=== PATIENT | male | born 1970 | race Caucasian/White ===

== ENCOUNTER 2021-03-22 15:37 | Outpatient (CLI) | payer OTHER, SELFPAY ==
[2021-03-22 15:58] LABS: Hematocrit 33.4 % (42.0-52.0); Hemoglobin 11.4 g/dL (14.0-18.0); Mean Corpuscular HGB Conc 34.1 g/dl (32-36); Mean Corpuscular Hemoglobin 30.2 pg (26-34); Mean Corpuscular Volume 88.6 fl (80-100); Mean Platelet Volume 8.5 fl (7.4-10.4); Platelet Count Result 326 k/mm3 (150-375); Red Blood Count 3.77 M/mm3 (4.6-6.20); Red Cell Distribution Width 12.8 % (11.5-14.5); White Blood Count 8.3 K/mm3 (4.5-10.0)
[2021-03-22 18:39] LABS: Iron 113 ug/dL (49-181)
[2021-03-22 18:41] LABS: Alanine Aminotransferase 22 U/L (4-50); Alkaline Phosphatase 53 U/L (38-126); Anion Gap 11 mmol/L (8-16); Aspartate Amino Transferase 46 U/L (17-59); Bilirubin,Total 0.4 mg/dL (0.2-1.3); Blood Urea Nitrogen 13 mg/dL (9-20); Calcium 9.8 mg/dL (8.4-10.2); Carbon Dioxide 29 mmol/L (22-30); Chloride 98 mmol/L (98-107); Estimated Glomerular Filt Rate > 60; Glucose 64 mg/dL (65-110); Lactate Dehydrogenase 366 U/L (313-618); Potassium 4.3 mmol/L (3.4-5.0); Sodium 138 mmol/L (137-145)
[2021-03-22 18:51] LABS: Percent Iron Saturation 33 % (20-50)
[2021-03-22 19:48] LABS: Folic Acid 7.4 ng/mL (2.76->20)
[2021-03-25 05:42] LABS: Albumin 4.8 g/dL (3.8-4.8); Alpha 1 Globulin 0.3 g/dL (0.2-0.3); Alpha 2 Globulin 0.6 g/dL (0.5-0.9); Beta 1 Globulin 0.5 g/dL (0.4-0.6); Gamma Globulin 0.7 g/dL (0.8-1.7); Interpretation Consistent with; Protein, Total 7.2 g/dL (6.1-8.1)
== END 2021-03-22 15:38 | disposition home or self-care (01) ==
PROVIDERS: Visit Provider Internal Medicine Hematology & Oncology
DX: D64.9 Anemia, unspecified (principal)
CPT/HCPCS: 36415; 80053; 82607; 82728; 82746; 83540; 83550; 83615; 84155; 84165; 85027

== ENCOUNTER 2021-07-26 08:43 | Outpatient (CLI) | payer OTHER, SELFPAY ==
[2021-07-26 08:58] LABS: Basophils Percent Auto 0.7 % (0.2-1.2); Eosinophils Absolute Auto 0.4 K/mm3 (0-0.3); Eosinophils Percent Auto 6.8 % (0-4.4); Hematocrit 35.3 % (42.0-52.0); Hemoglobin 11.4 g/dL (14.0-18.0); Immature Granulocyte Absolute 0.02 K/mm3 (0.00-0.031); Immature Granulocyte Percent A 0.4 % (0-0.5); Lymphocytes Percent Auto 29.4 % (18.3-44.2); Mean Corpuscular HGB Conc 32.3 g/dl (32-36); Mean Corpuscular Hemoglobin 30.8 pg (26-34); Mean Corpuscular Volume 95.4 fl (80-100); Mean Platelet Volume 8.3 fl (7.4-10.4); Monocytes Absolute Auto 0.5 K/mm3 (0.1-0.6); Monocytes Percent Auto 9.6 % (2.6-8.5); Neutrophils Absolute Auto 2.9 K/mm3 (1.3-6.7); Neutrophils Percent Auto 53.1 % (45.5-73.1); Platelet Count Result 309 k/mm3 (150-375); Red Cell Distribution Width 12.7 % (11.5-14.5); White Blood Count 5.4 K/mm3 (4.5-10.0)
[2021-07-26 13:18] LABS: Anion Gap 10 mmol/L (8-16); Blood Urea Nitrogen 14 mg/dL (9-20); Calcium 9.9 mg/dL (8.4-10.2); Carbon Dioxide 28 mmol/L (22-30); Chloride 101 mmol/L (98-107); Estimated Glomerular Filt Rate > 60; Glucose 102 mg/dL (65-110); Potassium 4.4 mmol/L (3.4-5.0); Sodium 139 mmol/L (137-145)
[2021-07-26 14:16] LABS: Vitamin B12 > 1000.0 pg/mL (239-931)
[2021-07-26 14:28] LABS: Folic Acid 6.1 ng/mL (2.76->20)
== END 2021-07-26 08:44 | disposition home or self-care (01) ==
LOC: ANHLAB 08:45
PROVIDERS: Visit Provider Internal Medicine Hematology & Oncology
DX: D64.9 Anemia, unspecified (principal)
CPT/HCPCS: 36415; 80048; 82607; 82746; 85025

== ENCOUNTER 2021-11-17 14:42 | Outpatient (RCR) | payer OTHER, SELFPAY ==
[2021-11-17 15:02] LABS: Basophils Percent Auto 0.4 % (0.2-1.2); Eosinophils Absolute Auto 0.3 K/mm3 (0-0.3); Eosinophils Percent Auto 3.5 % (0-4.4); Hematocrit 31.4 % (42.0-52.0); Hemoglobin 10.3 g/dL (14.0-18.0); Immature Granulocyte Absolute 0.01 K/mm3 (0.00-0.031); Immature Granulocyte Percent A 0.1 % (0-0.5); Lymphocytes Absolute Auto 2.44 K/mm3 (0.9-3.2); Lymphocytes Percent Auto 33.2 % (18.3-44.2); Mean Corpuscular HGB Conc 32.8 g/dl (32-36); Mean Corpuscular Hemoglobin 30.7 pg (26-34); Mean Corpuscular Volume 93.7 fl (80-100); Mean Platelet Volume 8.4 fl (7.4-10.4); Monocytes Absolute Auto 0.6 K/mm3 (0.1-0.6); Monocytes Percent Auto 7.6 % (2.6-8.5); Neutrophils Percent Auto 55.2 % (45.5-73.1); Platelet Count Result 334 k/mm3 (150-375); Red Blood Count 3.35 M/mm3 (4.6-6.20); Red Cell Distribution Width 13.1 % (11.5-14.5); White Blood Count 7.3 K/mm3 (4.5-10.0)
[2021-11-17 16:07] LABS: Iron 107 ug/dL (49-181)
[2021-11-17 16:10] LABS: Anion Gap 12 mmol/L (8-16); Blood Urea Nitrogen 12 mg/dL (9-20); Calcium 9.1 mg/dL (8.4-10.2); Carbon Dioxide 23 mmol/L (22-30); Chloride 99 mmol/L (98-107); Estimated Glomerular Filt Rate > 60; Glucose 89 mg/dL (65-110); Potassium 3.5 mmol/L (3.4-5.0); Sodium 134 mmol/L (137-145)
[2021-11-17 16:18] LABS: Percent Iron Saturation 30 % (20-50)
[2021-11-17 17:15] LABS: Folic Acid 6.6 ng/mL (2.76->20)
== END 2022-02-15 23:59 | disposition home or self-care (01) ==
LOC: ANHLAB 14:42
PROVIDERS: Visit Provider Internal Medicine Hematology & Oncology
DX: D64.9 Anemia, unspecified (principal)
CPT/HCPCS: 36415; 80048; 82607; 82728; 82746; 83540; 83550; 85025

== ENCOUNTER 2022-01-28 06:35 | Outpatient (CLI) | payer OTHER, SELFPAY ==
--- NOTE | 2022-01-28 09:47 | NEURO_ITS ---
This report was recreated on January 28, 2022. Original report was signed by Dr. Erick Sorensen on January 28, 2022 at 0947. Neurology EEG Report General Information Date of Study: 01/28/22 TEST eeg DIAGNOSIS None specified convulsions CONDITION OF RECORDING awake drowsy and sleep EEG NUMBER [id number] CLINICAL HISTORY patient is a is he had seizures for a while years ago but has not had 1 in several years. Wants to cut back on seizure medication EEG DESCRIPTION background rhythm consists of low voltage 5 to 7 hertz per 2nd theta admixed with low to medium voltage 8 to 9 hertz per 2nd alpha posterior. Bilateral symmetrical sleep activity seen during sleep. Hyperventilation not done. Photic stimulation produces normal drive. Non paroxysmal nonfocal nonlateralizing IMPRESSION only questionably abnormal record due to the presence of bihemispheric excessive amount of theta activity even though there is no evidence of any paroxysmal activity clinical correlation recommended these abnormalities could be suggestive of underlying organic or metabolic encephalopathy. This dictation may have been done utilizing a voice recognition system. Attempts have been made to correct errors. However, there may be uncorrected grammatical, spelling, and recognition errors present. Report Initialized date/time: Erick Sorensen MD 01/28/22 / 0947 Electronically signed by: Erick Sorensen MD 01/28/22 0940 [facility]
== END 2022-01-28 06:36 | disposition home or self-care (01) ==
LOC: ANHNEURO 06:35
PROVIDERS: PCP Internal Medicine Infectious Disease; Visit Provider Psychiatry & Neurology Neurology
DX: R56.9 Unspecified convulsions (principal); R94.01 Abnormal electroencephalogram [EEG]
CPT/HCPCS: 95816

== ENCOUNTER 2022-01-28 14:45 | Outpatient (CLI) | payer OTHER, SELFPAY ==
--- NOTE | ~2022-01-28 | CT_ITS ---
EXAMINATION: CT brain wo/w con DATE: 01/28/2022 15:13 INDICATION: Seizure TECHNIQUE: Computed tomography (CT) of the head was performed without and subsequently with 100 cc Om nipaque 300 intravenous contrast. The mA was adjusted according to patient size. Iterative reconstruc tion technique was employed. Exam dose: 1362.00 mGy-cm total exam DLP. COMPARISON: None FINDINGS: There is a focal subacute or chronic lacunar infarct in the right frontal periventricular a efra. No intracranial mass lesion or hemorrhage or cerebrovascular accident is noted otherwise. No midline shift or mass effect. There is nonspecific diminished attenuation of the cerebral white matter, likely due to chronic small vessel ischemic changes. There is considerably greater than expected cerebral and cerebellar volume loss for patient age. No subdural or epidural hematoma. There is prominent patchy opacification of the ethmoid air cells bilaterally. There is prominent soft tissue thickening at the very upper aspect of the maxillary sinuses, which are otherwise excluded fr om this examination. There is minimal mucoperiosteal thickening of the left sphenoid sinus. There is minimal mucoperiosteal thickening of the frontal sinuses. The mastoid air cells are normally developed and aerated. No fracture or bone destruction of the cranial vault. IMPRESSION: Focal subacute or chronic lacunar infarct in the right frontal periventricular area Cerebral atherosclerosis and chronic small vessel ischemic changes of the cerebral white matter Greater than expected cerebral and cerebellar atrophy for patient age Paranasal sinus disease involving particularly ethmoid and maxillary sinuses Reviewed, dictated and finalized at Location A. Reviewed, dictated and finalized at location B. IMPRESSION: Focal subacute or chronic lacunar infarct in the right frontal per iventricular area Cerebral atherosclerosis and chronic small vessel ischemic changes of the cereb ral white matter Greater than expected cerebral and cerebellar atrophy for patient age Paranasal sinus disease involving particularly ethmoid and maxillary sinuses
--- NOTE | 2022-01-28 09:44 | P.NEURO_ITS ---
Neurology EEG Report General Information Date of Study: 01/28/22 TEST eeg DIAGNOSIS None specified convulsions CONDITION OF RECORDING awake drowsy and sleep EEG NUMBER [id number] CLINICAL HISTORY patient is a is he had seizures for a while years ago but has not had 1 in several years. Wants to cut back on seizure medication EEG DESCRIPTION background rhythm consists of low voltage 5 to 7 hertz per 2nd theta admixed with low to medium voltage 8 to 9 hertz per 2nd alpha posterior. Bilateral symmetrical sleep activity seen during sleep. Hyperventilation not done. Photic stimulation produces normal drive. Non paroxysmal nonfocal nonlate ralizing IMPRESSION only questionably abnormal record due to the presence of bihemispheric excessive amount of theta activity even though there is no evidence of any paroxysmal activity clinical correlation recommended these abnormalities could be suggestive of underlying organic or metabolic encephalopathy.
--- NOTE | 2022-01-28 09:47 | WPDNEUROLOGY ---
Neurology EEG Report General Information Date of Study: 01/27/22 TEST eeg DIAGNOSIS Altered mental status with history of alcohol withdrawal CONDITION OF RECORDING awake and drowsy EEG NUMBER [id number] CLINICAL HISTORY tracings short due to pulling of of the electrodes patient was reportedly confused and lethargic EEG DESCRIPTION fold record consists of low-voltage beta activity admixed with multiple muscle artifacts and movement artifacts non paroxysmal focal. nonfocal. nonlateralizing. IMPRESSION no judgment can't be made because of the multiple movement artifacts and pulling of the electrodes clinical correlation recommended there is no evidence of any elton electrical discharge
== END 2022-01-28 14:46 | disposition home or self-care (01) ==
PROVIDERS: PCP Internal Medicine Infectious Disease; Visit Provider Psychiatry & Neurology Neurology
DX: R56.9 Unspecified convulsions (principal); I63.81 Other cerebral infarction due to occlusion or stenosis of small artery; I67.2 Cerebral atherosclerosis; G31.89 Other specified degenerative diseases of nervous system; J32.8 Other chronic sinusitis
CPT/HCPCS: 70470; 95816; Q9967

== ENCOUNTER 2022-03-21 15:50 | Outpatient (CLI) | payer OTHER, SELFPAY ==
[2022-03-21 16:03] LABS: Basophils Percent Auto 0.4 % (0.2-1.2); Eosinophils Absolute Auto 0.3 K/mm3 (0-0.3); Eosinophils Percent Auto 4.2 % (0-4.4); Hemoglobin 10.3 g/dL (14.0-18.0); Immature Granulocyte Absolute 0.03 K/mm3 (0.00-0.031); Immature Granulocyte Percent A 0.4 % (0-0.5); Lymphocytes Absolute Auto 2.25 K/mm3 (0.9-3.2); Lymphocytes Percent Auto 30.4 % (18.3-44.2); Mean Corpuscular HGB Conc 34.3 g/dl (32-36); Mean Corpuscular Hemoglobin 30.4 pg (26-34); Mean Corpuscular Volume 88.5 fl (80-100); Mean Platelet Volume 8.7 fl (7.4-10.4); Monocytes Absolute Auto 0.6 K/mm3 (0.1-0.6); Monocytes Percent Auto 7.8 % (2.6-8.5); Neutrophils Absolute Auto 4.2 K/mm3 (1.3-6.7); Neutrophils Percent Auto 56.8 % (45.5-73.1); Platelet Count Result 312 k/mm3 (150-375); Red Blood Count 3.39 M/mm3 (4.6-6.20); Red Cell Distribution Width 12.9 % (11.5-14.5); White Blood Count 7.4 K/mm3 (4.5-10.0)
[2022-03-21 16:49] LABS: Alanine Aminotransferase 20 U/L (6-50); Albumin Level 4.7 g/dL (3.5-5.1); Alkaline Phosphatase 55 U/L (38-126); Anion Gap 11 mmol/L (8-16); Aspartate Amino Transferase 30 U/L (17-59); Bilirubin,Total 0.3 mg/dL (0.2-1.3); Blood Urea Nitrogen 9 mg/dL (9-20); Calcium 9.3 mg/dL (8.4-10.2); Carbon Dioxide 25 mmol/L (22-30); Chloride 96 mmol/L (98-107); Estimated Glomerular Filt Rate > 60; Glucose 83 mg/dL (65-110); Iron 101 ug/dL (49-181); Potassium 3.4 mmol/L (3.4-5.0); Sodium 132 mmol/L (137-145)
[2022-03-21 16:58] LABS: Percent Iron Saturation 33 % (20-50)
[2022-03-21 17:56] LABS: Folic Acid 5.3 ng/mL (2.76->20); Vitamin B12 > 1000.0 pg/mL (239-931)
== END 2022-03-21 15:51 | disposition home or self-care (01) ==
LOC: ANHLAB 15:51
PROVIDERS: PCP Internal Medicine Infectious Disease; Visit Provider Internal Medicine Hematology & Oncology
DX: D64.9 Anemia, unspecified (principal)
CPT/HCPCS: 36415; 80053; 82607; 82728; 82746; 83540; 83550; 85025

== ENCOUNTER 2022-09-01 08:33 | Outpatient (CLI) | payer OTHER, SELFPAY ==
[2022-09-01 08:59] LABS: Basophils Percent Auto 0.6 % (0.2-1.2); Eosinophils Absolute Auto 0.3 K/mm3 (0-0.3); Hematocrit 31.2 % (42.0-52.0); Hemoglobin 10.5 g/dL (14.0-18.0); Immature Granulocyte Absolute 0.02 K/mm3 (0.00-0.031); Immature Granulocyte Percent A 0.3 % (0-0.5); Lymphocytes Absolute Auto 1.95 K/mm3 (0.9-3.2); Lymphocytes Percent Auto 30.3 % (18.3-44.2); Mean Corpuscular HGB Conc 33.7 g/dl (32-36); Mean Corpuscular Hemoglobin 30.8 pg (26-34); Mean Corpuscular Volume 91.5 fl (80-100); Mean Platelet Volume 8.5 fl (7.4-10.4); Monocytes Absolute Auto 0.6 K/mm3 (0.1-0.6); Monocytes Percent Auto 9.6 % (2.6-8.5); Neutrophils Absolute Auto 3.6 K/mm3 (1.3-6.7); Neutrophils Percent Auto 55.2 % (45.5-73.1); Platelet Count Result 325 k/mm3 (150-375); Red Blood Count 3.41 M/mm3 (4.6-6.20); Red Cell Distribution Width 13.1 % (11.5-14.5); White Blood Count 6.4 K/mm3 (4.5-10.0)
[2022-09-02 07:49] LABS: Iron 92 ug/dL (49-181)
[2022-09-02 07:58] LABS: Percent Iron Saturation 27 % (20-50)
== END 2022-09-01 08:34 | disposition home or self-care (01) ==
LOC: ANHLAB 08:35
PROVIDERS: PCP Internal Medicine Infectious Disease; Visit Provider Internal Medicine Hematology & Oncology
DX: D64.9 Anemia, unspecified (principal)
CPT/HCPCS: 36415; 82607; 82728; 82746; 83540; 83550; 85025

== ENCOUNTER 2023-02-06 10:58 | Outpatient (CLI) | payer OTHER, SELFPAY ==
[2023-02-06 11:09] LABS: Basophils Percent Auto 0.4 % (0.2-1.2); Eosinophils Absolute Auto 0.3 K/mm3 (0-0.3); Eosinophils Percent Auto 3.4 % (0-4.4); Hematocrit 30.2 % (42.0-52.0); Hemoglobin 10.3 g/dL (14.0-18.0); Immature Granulocyte Absolute 0.03 K/mm3 (0.00-0.031); Immature Granulocyte Percent A 0.3 % (0-0.5); Lymphocytes Absolute Auto 2.13 K/mm3 (0.9-3.2); Lymphocytes Percent Auto 23.5 % (18.3-44.2); Mean Corpuscular HGB Conc 34.1 g/dl (32-36); Mean Corpuscular Hemoglobin 31.4 pg (26-34); Mean Corpuscular Volume 92.1 fl (80-100); Monocytes Absolute Auto 0.6 K/mm3 (0.1-0.6); Monocytes Percent Auto 6.4 % (2.6-8.5); Platelet Count Result 336 k/mm3 (150-375); Red Blood Count 3.28 M/mm3 (4.6-6.20); Red Cell Distribution Width 12.9 % (11.5-14.5); White Blood Count 9.1 K/mm3 (4.5-10.0)
[2023-02-06 12:15] LABS: Iron 91 ug/dL (49-181)
[2023-02-06 12:24] LABS: Percent Iron Saturation 25 % (20-50)
[2023-02-06 12:26] LABS: Anion Gap 7 mmol/L (8-16); Blood Urea Nitrogen 11 mg/dL (9-20); Calcium 9.2 mg/dL (8.4-10.2); Carbon Dioxide 28 mmol/L (22-30); Chloride 100 mmol/L (98-107); Estimated Glomerular Filt Rate > 60; Glucose 102 mg/dL (65-110); Potassium 3.8 mmol/L (3.4-5.0); Sodium 135 mmol/L (137-145)
[2023-02-06 13:57] LABS: Folic Acid 4.4 ng/mL (2.76->20); Vitamin B12 > 1000.0 pg/mL (239-931)
== END 2023-02-06 10:59 | disposition home or self-care (01) ==
LOC: ANHLAB 11:00
PROVIDERS: PCP Internal Medicine Infectious Disease; Visit Provider Internal Medicine Hematology & Oncology
DX: D64.9 Anemia, unspecified (principal)
CPT/HCPCS: 36415; 80048; 82607; 82728; 82746; 83540; 83550; 85025

== ENCOUNTER 2023-09-28 10:37 | Outpatient (CLI) | payer OTHER, SELFPAY ==
[2023-09-28 10:59] LABS: Basophils Percent Auto 0.5 % (0.2-1.2); Eosinophils Absolute Auto 0.3 K/mm3 (0-0.3); Eosinophils Percent Auto 3.2 % (0-4.4); Hematocrit 30.8 % (42.0-52.0); Hemoglobin 10.5 g/dL (14.0-18.0); Immature Granulocyte Absolute 0.02 K/mm3 (0.00-0.031); Immature Granulocyte Percent A 0.2 % (0-0.5); Lymphocytes Absolute Auto 2.25 K/mm3 (0.9-3.2); Lymphocytes Percent Auto 28.1 % (18.3-44.2); Mean Corpuscular HGB Conc 34.1 g/dl (32-36); Mean Corpuscular Hemoglobin 31.1 pg (26-34); Mean Corpuscular Volume 91.1 fl (80-100); Mean Platelet Volume 8.7 fl (7.4-10.4); Monocytes Absolute Auto 0.6 K/mm3 (0.1-0.6); Neutrophils Absolute Auto 4.9 K/mm3 (1.3-6.7); Platelet Count Result 404 k/mm3 (150-375); Red Blood Count 3.38 M/mm3 (4.6-6.20); Red Cell Distribution Width 13.1 % (11.5-14.5)
[2023-09-28 17:24] LABS: Iron 78 ug/dL (49-181)
[2023-09-28 17:36] LABS: Percent Iron Saturation 28 % (20-50)
[2023-09-28 17:44] LABS: Alanine Aminotransferase 16 U/L (6-50); Albumin Level 4.7 g/dL (3.5-5.1); Alkaline Phosphatase 59 U/L (38-126); Anion Gap 7 mmol/L (8-16); Aspartate Amino Transferase 24 U/L (17-59); Bilirubin,Total 0.3 mg/dL (0.2-1.3); Blood Urea Nitrogen 8 mg/dL (9-20); Calcium 9.7 mg/dL (8.4-10.2); Carbon Dioxide 30 mmol/L (22-30); Chloride 103 mmol/L (98-107); Estimated Glomerular Filt Rate > 60; Glucose 100 mg/dL (65-110); Potassium 3.8 mmol/L (3.4-5.0); Sodium 140 mmol/L (137-145)
[2023-09-29 00:28] LABS: Folic Acid 4.3 ng/mL (2.76->20); Vitamin B12 > 1000.0 pg/mL (239-931)
== END 2023-09-28 10:38 | disposition home or self-care (01) ==
LOC: ANHLAB 10:39
PROVIDERS: PCP Internal Medicine Infectious Disease; Visit Provider Internal Medicine Hematology & Oncology
DX: D64.9 Anemia, unspecified (principal)
CPT/HCPCS: 36415; 80053; 82607; 82728; 82746; 83540; 83550; 85025

== ENCOUNTER → 2023-10-17 00:41 | Day surgery (SDC) | payer SELFPAY ==
[2023-10-16 15:02] VITALS: BMI 21.8
[2023-10-17 07:40] VITALS: BP 105/69; PULSE 55; RESP 23; TEMP 36.1; O2SAT 98; BMI 20.5
[2023-10-17 07:49] LABS: Basophils Percent Auto 0.5 % (0.2-1.2); Eosinophils Absolute Auto 0.3 K/mm3 (0-0.3); Eosinophils Percent Auto 4.1 % (0-4.4); Hemoglobin 10.9 g/dL (14.0-18.0); Immature Granulocyte Absolute 0.02 K/mm3 (0.00-0.031); Immature Granulocyte Percent A 0.3 % (0-0.5); Lymphocytes Absolute Auto 2.05 K/mm3 (0.9-3.2); Mean Corpuscular HGB Conc 34.1 g/dl (32-36); Mean Corpuscular Hemoglobin 31.1 pg (26-34); Mean Corpuscular Volume 91.4 fl (80-100); Mean Platelet Volume 8.6 fl (7.4-10.4); Monocytes Absolute Auto 0.7 K/mm3 (0.1-0.6); Monocytes Percent Auto 8.4 % (2.6-8.5); Neutrophils Absolute Auto 4.8 K/mm3 (1.3-6.7); Neutrophils Percent Auto 60.7 % (45.5-73.1); Platelet Count Result 379 k/mm3 (150-375); Red Cell Distribution Width 13.2 % (11.5-14.5); White Blood Count 7.9 K/mm3 (4.5-10.0)
== END ==
PROVIDERS: PCP Internal Medicine Infectious Disease; Referring Provider Internal Medicine Hematology & Oncology; Visit Provider Radiology Diagnostic Radiology
DX: D64.9 Anemia, unspecified (principal)
CPT/HCPCS: 36415; 85025; 85610; 99199; J7040

== ENCOUNTER 2023-11-01 01:04 | Day surgery (SDC) | payer SELFPAY ==
[2023-10-31 13:30] VITALS: BMI 21.7
--- NOTE | ~2023-11-01 | BM_ITS ---
EXAMINATION: CCL bone marrow asp w bx diag ORDER COMPLETED DATE: 11/02/2023 12:13 INDICATION: Chronic anemia TECHNIQUE: A time-out was performed to verify the patient's name, date of , and procedure to b e performed. The procedure including the risks and benefits was discussed with the patient. Risks dis cussed included bleeding, infection, nerve injury and allergic reaction. The patient understood the r isks and agreed to proceed. The skin overlying the right posterior iliac spine was prepped and draped in usual sterile fashion. Anesthetic was administered with 1% lidocaine subcutaneously. Moderate co nscious sedation was achieved with 100 mcg fentanyl IV. An 11 gauge needle was inserted into the righ t ilium with fluoroscopic guidance. Bone marrow was aspirated. An 8 gauge needle was then inserted in to the right ilium with fluoroscopic guidance. A core bone marrow biopsy was obtained. The needle was removed and the entry site was cleaned and dressed. There were no immediate complications. A total of 122 fluoroscopic images were recorded. Fluoroscopy exposure time was 0.1 minutes. FINDINGS: Real-time fluoroscopy demonstrates the biopsy needle tip overlying the right posterior omid c spine. IMPRESSION: 1. Successful fluoroscopic guided bone marrow aspiration. 2. Successful fluoroscopic guided bone marrow biopsy. Reviewed, dictated and finalized at location A.
[2023-11-01 07:48] VITALS: BP 108/74; PULSE 67; RESP 19; TEMP 36.2; O2SAT 100; BMI 20.5
[2023-11-01 08:06] LABS: Basophils Percent Auto 0.5 % (0.2-1.2); Eosinophils Absolute Auto 0.4 K/mm3 (0-0.3); Eosinophils Percent Auto 5.8 % (0-4.4); Hematocrit 32.3 % (42.0-52.0); Hemoglobin 10.8 g/dL (14.0-18.0); Immature Granulocyte Absolute 0.02 K/mm3 (0.00-0.031); Immature Granulocyte Percent A 0.3 % (0-0.5); Lymphocytes Absolute Auto 1.84 K/mm3 (0.9-3.2); Lymphocytes Percent Auto 28.1 % (18.3-44.2); Mean Corpuscular HGB Conc 33.4 g/dl (32-36); Mean Corpuscular Hemoglobin 30.8 pg (26-34); Monocytes Absolute Auto 0.5 K/mm3 (0.1-0.6); Monocytes Percent Auto 7.3 % (2.6-8.5); Neutrophils Absolute Auto 3.8 K/mm3 (1.3-6.7); Platelet Count Result 343 k/mm3 (150-375); Red Blood Count 3.51 M/mm3 (4.6-6.20); Red Cell Distribution Width 13.2 % (11.5-14.5); White Blood Count 6.6 K/mm3 (4.5-10.0)
[2023-11-01 08:40] LABS: INR 1.1; Prothrombin Time 14.4 Seconds (11.1-14.7)
--- NOTE | 2023-11-01 09:24 | WPDMODSED ---
Moderate Sedation Note-Pt Data Patient Data Diagnosis: chronic anemia Present Complaint: chronic anemia and weight loss Procedure to be performed/Plan: bone marrow biopsy Allergies Allergy/AdvReac Type Severity Reaction Status Date / Time No Known Allergies Allergy Verified 11/01/23 07:45 Home Medications Medication Instructions Recorded Confirmed Type allopurinol 300 mg tablet 300 mg PO DAILY 10/31/23 11/01/23 History atorvastatin 40 mg tablet 40 mg PO DAILY 10/31/23 10/31/23 History fenofibrate nanocrystallized 145 145 mg PO DAILY 10/31/23 10/31/23 History mg tablet levetiracetam 750 mg tablet 750 mg PO BID 10/31/23 11/01/23 History pantoprazole 40 mg tablet,delayed 40 mg PO DAILY 10/31/23 11/01/23 History release phenytoin sodium extended 100 mg 300 mg PO BID 10/31/23 11/01/23 History capsule Sedation/Anesthesia: No previous sedation/anesthesia problems (including family history). PMFSH Past Medical History Medical History Anemia Social History Social History Social History: never smoker Smoking status: Current every day smoker Tobacco type: smokeless tobacco Smokeless tobacco user: chewing tobacco Alcohol intake: former Substance use: former Substance use type: marijuana Living arrangements: with family Spiritual care concerns: No Mod Sed Physical Exam Physical Exam Pre Procedural Exam: Normal: Appearance, Throat, Lungs, Heart Rate and Heart Rhythm Hours since solid foods: 10 Hours since liquid intake: 10 Mallampati Classification: class II Internal Medicine - PN: Obj Da Vital Signs Vital Signs: Vital Signs - 24 hr 11/01/23 07:48 Temperature 97.2 F L Pulse Rate 67 Respiratory Rate 19 Blood Pressure 108/74 Pulse Oximetry 100 Oxygen Delivery Room Air Labs 11/01/23 07:43 Labs: Laboratory Results - last 24 hr 11/01/23 11/01/23 07:43 08:03 WBC 6.6 RBC 3.51 L Hgb 10.8 L Hct 32.3 L MCV 92.0 MCH 30.8 MCHC 33.4 RDW 13.2 Plt Count 343 MPV 9.0 Immature Gran % (Auto) 0.3 Neut % (Auto) 58.0 Lymph % (Auto) 28.1 [place] % (Auto) 7.3 Eos % (Auto) 5.8 H Baso % (Auto) 0.5 Lymph # (Auto) 1.84 [place] # (Auto) 0.5 Eos # (Auto) 0.4 H Baso # (Auto) 0.0 Abs Immat Gran (auto) 0.02 Absolute Neuts (auto) 3.8 Absolute Nucleated RBC 0.000 Nucleated RBC % 0.0 PT 14.4 INR 1.1 ASA Classification/Sedation ASA Classification/Sedation ASA Class: II Emergent: No Risks: Risks, benefits and alternatives explained and patient/family accepted plan for sedation. Patient re-evaluated immediately prior to sedation.
[2023-11-01 09:35] VITALS: BP 118/68; PULSE 65; RESP 19; O2SAT 100
[2023-11-01 09:45] VITALS: BP 103/55; PULSE 56; RESP 13; O2SAT 98
[2023-11-01 10:00] VITALS: BP 106/78; PULSE 60; RESP 19; O2SAT 99
[2023-11-01 10:15] VITALS: BP 94/63; PULSE 51; RESP 19; O2SAT 97
[2023-11-01 10:26] VITALS: BP 123/76; PULSE 63; RESP 22; O2SAT 99
== END 2023-11-01 10:37 | disposition home or self-care (01) ==
PROVIDERS: PCP Internal Medicine Infectious Disease; Referring Provider Internal Medicine Hematology & Oncology; Visit Provider Radiology Diagnostic Radiology
DX: D64.9 Anemia, unspecified (principal); F17.220 Nicotine dependence, chewing tobacco, uncomplicated
CPT/HCPCS: 36415; 38222; 85025; 85610; 88305; 88311; 88313; 88341; 88342; J1642; J2250; J3010; J7040

== ENCOUNTER 2024-01-22 11:23 | Outpatient (CLI) | payer SELFPAY ==
[2024-01-22 11:48] LABS: Basophils Percent Auto 0.5 % (0.2-1.2); Eosinophils Absolute Auto 0.1 K/mm3 (0-0.3); Eosinophils Percent Auto 1.6 % (0-4.4); Hematocrit 32.5 % (42.0-52.0); Hemoglobin 10.9 g/dL (14.0-18.0); Immature Granulocyte Absolute 0.03 K/mm3 (0.00-0.031); Immature Granulocyte Percent A 0.3 % (0-0.5); Lymphocytes Absolute Auto 2.42 K/mm3 (0.9-3.2); Lymphocytes Percent Auto 27.6 % (18.3-44.2); Mean Corpuscular HGB Conc 33.5 g/dl (32-36); Mean Corpuscular Hemoglobin 30.3 pg (26-34); Mean Corpuscular Volume 90.3 fl (80-100); Monocytes Absolute Auto 0.6 K/mm3 (0.1-0.6); Monocytes Percent Auto 7.1 % (2.6-8.5); Neutrophils Absolute Auto 5.5 K/mm3 (1.3-6.7); Neutrophils Percent Auto 62.9 % (45.5-73.1); Platelet Count Result 383 k/mm3 (150-375); White Blood Count 8.8 K/mm3 (4.5-10.0)
[2024-01-22 13:38] LABS: Iron 86 ug/dL (49-181)
[2024-01-22 13:45] LABS: Alanine Aminotransferase 14 U/L (6-50); Albumin Level 5.1 g/dL (3.5-5.1); Alkaline Phosphatase 53 U/L (38-126); Anion Gap 13 mmol/L (4-12); Aspartate Amino Transferase 25 U/L (17-59); Bilirubin,Total 0.4 mg/dL (0.2-1.3); Blood Urea Nitrogen 13 mg/dL (9-20); Calcium 10.1 mg/dL (8.4-10.2); Carbon Dioxide 26 mmol/L (22-30); Chloride 100 mmol/L (98-107); Estimated Glomerular Filt Rate > 60; Glucose 104 mg/dL (65-110); Potassium 3.4 mmol/L (3.4-5.0); Sodium 139 mmol/L (137-145)
[2024-01-22 13:54] LABS: Percent Iron Saturation 25 % (20-50)
[2024-01-22 15:29] LABS: Folic Acid 7.9 ng/mL (2.76->20); Vitamin B12 > 1000.0 pg/mL (239-931)
== END 2024-01-22 11:24 | disposition home or self-care (01) ==
LOC: ANHLAB 11:24
PROVIDERS: PCP Internal Medicine Infectious Disease; Visit Provider Internal Medicine Hematology & Oncology
DX: D64.9 Anemia, unspecified (principal)
CPT/HCPCS: 36415; 80053; 82607; 82728; 82746; 83540; 83550; 85025

== ENCOUNTER 2024-04-24 10:17 | Outpatient (CLI) | payer OTHER, SELFPAY ==
[2024-04-24 11:06] LABS: Basophils Absolute Auto 0.1 K/mm3 (0.0-0.1); Basophils Percent Auto 0.7 % (0.2-1.2); Eosinophils Absolute Auto 0.2 K/mm3 (0-0.3); Eosinophils Percent Auto 2.9 % (0-4.4); Hematocrit 30.4 % (42.0-52.0); Hemoglobin 10.2 g/dL (14.0-18.0); Immature Granulocyte Absolute 0.03 K/mm3 (0.00-0.031); Immature Granulocyte Percent A 0.4 % (0-0.5); Lymphocytes Absolute Auto 2.06 K/mm3 (0.9-3.2); Lymphocytes Percent Auto 25.1 % (18.3-44.2); Mean Corpuscular HGB Conc 33.6 g/dl (32-36); Mean Corpuscular Hemoglobin 30.6 pg (26-34); Mean Corpuscular Volume 91.3 fl (80-100); Mean Platelet Volume 7.8 fl (7.4-10.4); Monocytes Absolute Auto 0.6 K/mm3 (0.1-0.6); Monocytes Percent Auto 7.3 % (2.6-8.5); Neutrophils Absolute Auto 5.2 K/mm3 (1.3-6.7); Neutrophils Percent Auto 63.6 % (45.5-73.1); Platelet Count Result 359 k/mm3 (150-375); Red Blood Count 3.33 M/mm3 (4.6-6.20); White Blood Count 8.2 K/mm3 (4.5-10.0)
[2024-04-24 17:16] LABS: Anion Gap 8 mmol/L (4-12); Blood Urea Nitrogen 7 mg/dL (9-20); Calcium 9.7 mg/dL (8.4-10.2); Carbon Dioxide 28 mmol/L (22-30); Chloride 100 mmol/L (98-107); Estimated Glomerular Filt Rate > 60; Glucose 93 mg/dL (65-110); Potassium 4.2 mmol/L (3.4-5.0); Sodium 136 mmol/L (137-145)
[2024-04-24 21:44] LABS: Iron 98 ug/dL (49-181)
[2024-04-24 21:56] LABS: Percent Iron Saturation 37 % (20-50)
[2024-04-24 22:31] LABS: Folic Acid 6.2 ng/mL (2.76->20); Vitamin B12 > 1000.0 pg/mL (239-931)
== END 2024-04-24 10:18 | disposition home or self-care (01) ==
PROVIDERS: PCP Internal Medicine Infectious Disease; Visit Provider Internal Medicine Hematology & Oncology
DX: D64.9 Anemia, unspecified (principal)
CPT/HCPCS: 36415; 80048; 82607; 82728; 82746; 83540; 83550; 85025

== ENCOUNTER 2024-09-02 09:35 | Outpatient (CLI) | payer OTHER, SELFPAY ==
[2024-09-02 10:00] LABS: Basophils Percent Auto 0.6 % (0.2-1.2); Eosinophils Absolute Auto 0.2 K/mm3 (0-0.3); Eosinophils Percent Auto 3.6 % (0-4.4); Hematocrit 30.3 % (42.0-52.0); Hemoglobin 10.2 g/dL (14.0-18.0); Immature Granulocyte Absolute 0.01 K/mm3 (0.00-0.031); Immature Granulocyte Percent A 0.2 % (0-0.5); Lymphocytes Absolute Auto 1.92 K/mm3 (0.9-3.2); Lymphocytes Percent Auto 30.2 % (18.3-44.2); Mean Corpuscular HGB Conc 33.7 g/dl (32-36); Mean Corpuscular Hemoglobin 30.6 pg (26-34); Mean Platelet Volume 7.9 fl (7.4-10.4); Monocytes Absolute Auto 0.5 K/mm3 (0.1-0.6); Monocytes Percent Auto 7.4 % (2.6-8.5); Neutrophils Absolute Auto 3.7 K/mm3 (1.3-6.7); Platelet Count Result 320 k/mm3 (150-375); Red Blood Count 3.33 M/mm3 (4.6-6.20); Red Cell Distribution Width 13.1 % (11.5-14.5); White Blood Count 6.4 K/mm3 (4.5-10.0)
--- OUTSIDE RECORDS SUMMARY | 2024-09-02 10:29 | XMS_ITS | Clinical Summary ---
Author Organization [facility] Address [address] [place] [id number] Care Team Providers Care Chemical Preparer Name Role Phone Angela Demarco MD Primary Care Provider Sharee Bella APRN, ENVELOPE PATTERNMAKER Unavailable [phone] Allergies No known active allergies Medications albuterol 108 (90 Base) MCG/ACT Aerosol Solution INHALE TWO PUFFS BY MOUTH EVERY 4 HOURS NEEDED FOR BREATHING 4 Active allopurinol (ZYLOPRIM) 300 MG Tablet TAKE ONE TABLET BY MOUTH EVERY MORNING FOR GOUT 4 Active atorvastatin (LIPITOR) 40 MG Tablet TAKE ONE TABLET BY MOUTH EVERY NIGHT AT BEDTIME TO LOWER CHOLESTEROL 4 Active fenofibrate (TRICOR) 145 MG Tablet TAKE ONE TABLET BY MOUTH EVERY EVENING FOR TRIGLYCERIDES 4 Active Ferrous Sulfate (IRON PO) Take by mouth. Activ e levETIRAcetam (KEPPRA) 750 MG Tablet Take 750 mg by mouth 2 times daily. Active pantoprazole (PROTONIX) 40 MG Tablet Delayed Response Take 40 mg by mouth daily. Active phenytoin (DILANTIN) 100 MG ER capsule Take 100 mg by mouth 2 times daily. 3 tablets twice daily Active Cyanocobalamin (B-12 PO) Take by mouth. Activ e Ascorbic Acid (VITAMIN C PO) Take by mouth. Active POTASSIUM CHLORIDE PO Take by mouth. Act melo Active Problems No known active problems Encounters Date Type Department Care Team Description 06/27/2024 11:00 AM SEMI DRIVER Office Visit [facility] - Neurology [facility] [address] [place] [address] Sharee Bella APRN, ENVELOPE PATTERNMAKER Seizures (HCC) (Primary Dx) Discharge Disposition: Discharged to home or Selfcare 06/27/2024 Travel from Last 3 Months Family History Medical History Relation Name Comments Cancer Brother Heart Attack Father Hypertension Father Relation Name Status Comments Brother Father Social History Tobacco Use Types Packs/Day Years Used Date Smoking Tobacco: Never Smokeless Tobacco: Current Chew Tobacco Cessation:Ready to Q uit: Not Asked; Counseling Given: Not Answered Alcohol Use Standard Drinks/Week Comments Not Currently 0 (1 standard drink = 0.6 oz pur e alcohol) Sex and Gender Information Value Date Recorded Sex Assigned at Not on file Legal Sex Male 2:53 PM SEMI DRIVER Gender Identity Not on file Sexual Orientation Not on file Last Filed Vital Signs Vital Sign Reading Time Taken Comments Blood Pressure 108/62 06/27/2024 10:40 AM SEMI DRIVER Pulse 79 06/27/2024 10:40 AM SEMI DRIVER Temperature 36.6 C (97.9 F) 06/27/2024 10:40 AM SEMI DRIVER Respiratory Rate 16 06/27/2024 10:40 AM SEMI DRIVER Oxygen Saturation 100% 06/27/2024 10:40 AM SEMI DRIVER Inhaled Oxygen Concentration - - Weight 69.5 kg (153 lb 3.2 oz) 06/27/2024 10:40 AM SEMI DRIVER Height 172.7 cm (5' 8 ) 06/27/2024 10:40 AM SEMI DRIVER Body Mass Index 23.29 06/27/2024 10:40 AM SEMI DRIVER Plan of Treatment Upcoming Encounters Date Type Department Care Team (Late st Contact Info) Description 12/30/2024 3:00 PM CDT Office Visit [facility] - Neurology [facility] [address] [place] [address] Sharee Bella APRN, ENVELOPE PATTERNMAKER [address] [place] [address] Health Maintenance Due Date Last Done Comments Hepatitis C Virus (HCV) Screening 1968 Hepatitis B Immunization (1 of 3 - 19+ 3-dose series) 1987 Colonoscopy 2013 Colorectal Cancer Screening 2013 Cologuard 2018 Immunochemical Fecal Occult Blood 2018 Zoster Immunization (2 of 2) 08/31/2021 07/06/2021 PSA Discussion 2023 Influenza Immunization (#1) 03/10/2024/11/2023, 03/28/2022, 04/20/2021, Additional history exists Respiratory Syncytial Virus (RSV) Immunization (Adult) (1 - 1-dose 75+ series) 2043 DTaP/Tdap/Td Immunization Discontinued 07/10/2012 TdaP Immunization Completed 07/10/2012 SARS-COV-2 Immunization Completed 04/17/20 24, 03/31/2023, 05/13/2022, Additional history exists Pneumococcal Immunization (50+ years) Completed 06/25/2024 Pneumococcal Immunization Combined Discontinued 06/25/2024 Meningococcal Immunization (ACWY) Aged Out No longer eligible based on patient's age to complete this topic Rotavirus Immunization Aged Out No lo nger eligible based on patient's age to complete this topic Procedures Procedure Name Priority Date/Time Associated Diagnosis Comments DORINA YEAGER LEVE 06/27/2024 12:00 AM SEMI DRIVER from Last 3 Months Results * DORINA YEAGER LEVE (06/27/2024 12:00 AM SEMI DRIVER) 06/27/2024 us Provider Scan LAB SEND OUTS Final Result SCAN from Last 3 Months Insurance [employer] on file PHCS BPA JOSE E SEBASTIAN [id number] Care Teams Chemical Preparer Relationship Specialty Start Date End Date Angela Demarco MD [address] [place] [address] PCP - General Internal Medicine 04/03/24 Sharee Bella, VIBRATION TECHNICIAN, ENVELOPE PATTERNMAKER [address] [place] [address] Nurse Practitioner Advanced Practice Nurse 06/27/24
--- OUTSIDE RECORDS SUMMARY | 2024-09-02 10:29 | XMS_ITS | Continuity of Care Document ---
Author Organization [facility] Address [address] [place] [address] [address] [place] [address] Phone Care Team Providers Care Wood Mill Supervisor Name Role Phone Jessica Poole Unavailable Unavailable Procedures Procedure Date Eye Exam & Treatment Refraction Advance Directives Directive Yes / No Effective Date File Name No Information Encounters Encounter Description Practice Location Reason(s) For Visit Diagnoses Date Provider Providers Copied on Encounter [facility], [address] [place] [address] [address], [place], [place], [id number], [place] tel:[phone] [facility] No Information [phone] Lopez. [address] [facility] [place] , [address], [place], [address], [place]. tel:[phone] Family History Family Member Type Diagnosis Age At Onset No Information Payers Payer name Insurance type Covered alliance party ID Authoriza tion(s) [employer] [facility] [id number] Social History Type Description Quantity Date Captured Comments Sex Male Smoking Status No Information Chief Complaint And Reason For Visit No Information Reason For Referral Reason For Referral No Information History Of Present Illness Encounter Date Complaint History Of Prese nt Illness No Information Functional Status Date Functional Assessmen t No Information Instructions Date Instruction Additional Infor mation No Information Assessments Type Assessment Date No Information Patient Care Teams Name Effective Dates (start - stop) Status Members No Information
--- OUTSIDE RECORDS SUMMARY | 2024-09-02 10:29 | XMS_ITS | Clinical Summary ---
Author Organization [facility] Address [address] [place] [address] Care Team Providers Care Marketing Team Lead Name Role Phone Angela Demarco MD Primary Care Provider Source Comments [facility],non-owned Affiliates and Associated Physician Practices is amultiple site organization consisting of ambulatory clinics and hospital sitesin [place], [place], [place] and [place]. This disclosure is being madepursuant to the Care Everywhere program and may not contain all information available regarding this patient. Last updated 18.[facility] Medications Be aware that medications may not be up to date on this document. Always verify current medications with the patient. No known medications Active Problems No known active problems Social History Tobacco Use Types Packs/Day Years Used Date Smoking Tobacco: Never Assessed Sex and Gender Information Value Date Recorded Sex Assigned at Not on file Gender Identity Not on file Sexual Orientation Not on file Last Filed Vital Signs Vital Sign Reading Time Taken Comments Blood Pressure 103/67 03/21/2024 1:44 PM CDT Pulse 71 03/21/2024 1:44 PM CDT Temperature 36.6 C (97.8 F) 03/21/2024 1:44 PM CDT Respiratory Rate 20 03/21/2024 1:44 PM CDT Oxygen Saturation 100% 03/21/2024 1:44 PM CDT Inhaled Oxygen Concentration - - Weight 69.2 kg (152 lb 9.6 oz) 03/21/2024 1:44 P M CDT Height 175.3 cm (5' 9 ) 03/21/2024 1:44 PM CDT Body Mass Index 22.54 03/21/2024 1:44 PM CDT Plan of Treatment Health Maintenance Due Date Last Done Comments COLOGUARD (AGES 45-75) - COLON CA SCREENING 1968 COLON MONITORING 1968 COLONOSCOPY - COLON CA SCREENING 1968 CT COLONOGRAPHY - COLON CA SCREENING 1968 Colorectal Cancer Screening 1968 FIT - COLON CA SCREENING 1968 FLEX SIG - COLON CA SCREENING 1968 LIPID TESTING 1968 HIV SCREENING 1983 HEPATITIS C SCREENING 06/30/1986 DTAP/TDAP/TD VACCINES (1 - Tdap) 1987 HEPATITIS B VACCINE (1 of 3 - 19+ 3-dose series) 1987 PNEUMOCOCCAL VACCINE 50+ (1 of 1 - PCV) 2018 ZOSTER VACCINE (1 of 2) 2018 COVID-19 VACCINE ( - season) 2024 03/31/2023, 05/13/2022, 07/06/2021, Additional history exists INFLUENZA VACCINE (#1) 2024 , 03/28/2022, 04/20/2021, Additional history exists DEPRESSION SCREENING 07/10/2024 HIB VACCINE Aged Out No longer eligi ble based on patient's age to complete this topic HPV VACCINE Aged Out No longer eligi ble based on patient's age to complete this topic MENINGOCOCCAL (Group B) VACCINE Aged Out No longer eligible based on patient's age to complete this topic MENINGOCOCCAL VACCINE Aged Out No nathalie salma eligible based on patient's age to complete this topic PNEUMOCOCCAL VACCINE Aged Out No long er eligible based on patient's age to complete this topic Care Teams Marketing Team Lead Relationship Specialty Start Date End Date Angela Demarco MD [address] [place], [place] [phone] PCP - General Internal Medicine 03/21/24
--- OUTSIDE RECORDS SUMMARY | 2024-09-02 10:29 | XMS_ITS | Encounter Summary ---
Author Organization [facility] Address [address] [place] [address] Care Team Providers Care Reinforcing Steel Worker Name Role Phone Angela Demarco MD Primary Care Provider Encounter Details Date Type Department Care Team (Late st Contact Info) Description 11/01/2023 Lab Requisition [facility] - Pathology Lab [address] [place] [address] Jaime Coleman MD [address] [place] [id number] Anemia, unspecified Social History Tobacco Use Types Packs/Day Years Used Date Smoking Tobacco: Never Assessed Sex and Gender Information Value Date Recorded Sex Assigned at Not on file Gender Identity Not on file Sexual Orientation Not on file documented as of this encounter Plan of Treatment Not on file documented as of this encounter Procedures Procedure Name Priority Date/Time Associated Diagnosis Comments FLOW CYTOMETRY BONE MARROW Routine 11/01/2023 9:16 AM CDT Anemia, unspecified documented in this encounter Results * FLOW CYTOMETRY BONE MARROW (11/01/2023 9:16 AM CDT) Case Report Flow Cytometry Case: [id number] Authorizing Provider: Jaime Coleman Collected: 11/01/2023 09:16 AM MD Royce Ordering Location: [facility] - Received: 11/01/2023 01:16 PM Pathology Lab Pathologist: Cristina Christian MD Specimen: Bone Marrow 11/01/2023 3:29 PM CDT [facility] Final Diagnosis Bone marrow, flow cytometry: - No clonal B-cell or increased blast population detected 11/01/2023 3:29 PM [facility] Flow Cytometry Interpretation Viability: 93% B-cells: polytypic, kappa:lambda ratio 1.5:1 T-cells: not increased Blasts: not increased, 3.7% of overall events, a small subset represents CD19+/CD10+ hematogones. A bone marrow aspirate smear prepared from the flow cytometry specimen has been reviewed for quality assurance calibrator purposes. 11/01/2023 3:29 PM [facility] Flow Cytometry Results Differential Result Comment Flow Cell Count /uL 120,000 Total Viability % 93.0 Lymphocytes % 30 Dim CD45 Region % 10 Monocytes % 9 Granulocytes % 52 11/01/2023 3:29 PM [facility] Reason for test Anemia, unspecified 285.9 11/01/2023 3:29 PM [facility] Client Specimen ID # [id number] 11/01/2023 3:29 PM [facility] Number of markers 10 were performed. A-2 Flow CD10 A-3 Flow CD13 A-5 Flow CD20 A-1 Flow CD5 A-4 Flow CD19 A-6 Flow CD33 A-7 Flow CD34 A-8 Flow CD45 A-9 Joslin+CD19+ A-10 Lambda+CD19+ 11/01/2023 3:29 PM [facility] Pathologist Location at [facility] 11/01/2023 3:29 PM [facility] Disclaimer Test performed at [facility], [address] [place] [address], [id number]. *The established laboratory minimum viability is 70%. Values below the minimum may result in the failure to find an abnormal population of cells. This test was developed and its performance characteristics determined by the Flow Cytometry Laboratory. It has not been cleared by the [place] Food and Drug Administration (FDA). The FDA has determined that such clearance or approval is not necessary. This test is used for clinical purposes. It should not be regarded as investigational or for research. This laboratory is regulated under the Clinical Laboratory Improvement Amendments of 1998 (CLIA) as a qualified to perform high complexity clinical testing. 11/01/2023 3:29 PM [facility] Embedded Images 3:29 PM CDT [facility] Pathology/Cytolo gy BONE MARROW SPECIMEN / Unknown 11/01/2023 9:16 AM CDT 11/01/2023 1:16 PM CDT Jaime Coleman MD LAB - PATHO LOGY/CYTOLOGY ORDERABLES Performing Organization Address City/State/[facility] Co de Phone Number [facility] [address] [phone] documented in this encounter Visit Diagnoses Diagnosis Anemia, unspecified documented in this encounter Care Teams Reinforcing Steel Worker Relationship Specialty [place] [address] [place] [phone] PCP - General Internal Medicine 03/21/24 documented as of this encounter
--- OUTSIDE RECORDS SUMMARY | 2024-09-02 10:29 | XMS_ITS | Encounter Summary ---
Author Organization [facility] Address [address] [place] [address] Care Team Providers Care Airfield Manager Name Role Phone Angela Demarco MD Primary Care Provider Encounter Details Date Type Department Care Team (Late st Contact Info) Description 11/02/2023 Lab Requisition [facility] - Pathology Lab [address] [place] [address] Jaime Coleman MD [address] [place] [id number] Illness, unspecified Social History Tobacco Use Types Packs/Day Years Used Date Smoking Tobacco: Never Assessed Sex and Gender Information Value Date Recorded Sex Assigned at Not on file Gender Identity Not on file Sexual Orientation Not on file documented as of this encounter Plan of Treatment Not on file documented as of this encounter Procedures Procedure Name Priority Date/Time Associated Diagnosis Comments BONE MARROW BIOPSY (STL) Routine 11/01/2023 9:16 AM CDT Illness, unspecified documented in this encounter Results * BONE MARROW BIOPSY (STL) (11/01/2023 9:16 AM CDT) Case Report Bone Marrow Patholog y Report Case: [id number] Authorizing Provider: Jaime Coleman Collected: 11/01/2023 09:16 AM MD Royce Ordering Location: [facility] Physician [facility] - Received: 11/02/2023 03:53 PM Pathology Lab Pathologist: Cristina Christian MD Specimens: A) - Bone Marrow Clot B) - Bone Marrow Core 11/03/2023 3:17 PM CDT [facility] Final Diagnosis Bone marrow, aspirate, clot section, and core biopsy: - Normocellular marrow with maturing trilineage hematopoiesis - No evidence of lymphoma or high-grade myeloid neoplasm - See description Peripheral blood smear: - Normocytic anemia - See description 11/03/2023 3:17 PM [facility] Comment Correlation with cytogenetics is recommended. 11/03/2023 3:17 PM [facility] Peripheral Smear Description Manual Differential Count (100 cells): 58% neutrophils, 29% lymphocytes, 7% monocytes, 6% eosinophils, and 0% basophils. Leukocyte number: normal. Granulocyte morphology: normal. Lymphocyte morphology: normal. Erythrocyte number: decreased. Erythrocyte morphology: normocytic and normochromic. Anisopoikilocytosis: mild. Polychromasia: mild. Platelet number: normal. Platelet morphology: normal. 11/03/2023 3:17 PM [facility] Bone Marrow Aspirate Differential count (500 cells): 0% blasts, 60% maturing myeloid precursors, 31% erythroid progenitors, 1% monocytes, 0% eosinophils, 7% lymphocytes, 1% plasma cells. Specimen quality: adequate. Spicules: few. Trilineage Hematopoiesis: present. Myeloid:Erythroid ratio: 1.9:1. Myeloid Maturation: normal. Erythroid Maturation: normal. Megakaryocyte morphology: normal nuclear lobation. Storage iron (by special stain): adequate. Sideroblastic iron (by special stain): no ring sideroblasts. 11/03/2023 3:17 PM [facility] Bone Marrow Core Biopsy and Clot Section Description Specimen quality: adequate with 2.1 cm of evaluable marrow. Cellularity: ~50 % Trilineage Hematopoiesis: present. Myeloid to Erythroid ratio: normal. Myeloid maturation and localization: normal. Erythroid maturation and localization: normal. Megakaryocyte number: normal. Megakaryocyte distribution: normal. Lymphoid aggregates: Two small aggregates of mixed B and T cells, highlighted by CD3 and CD20. Bone trabeculae: normal. Blood vessels: normal. Plasma cells: mildly increased. Clot section marrow particles: present. Clot section morphology: similar to core biopsy. For further evaluation, properly controlled immunohistochemical stains are performed on core biopsy, in [facility], Department of pathology and demonstrate the following: CD138 highlights scattered and occasional small aggregates of plasma cells, estimated ~5-7% of marrow cellularity. CD3: Highlights T lymphocytes, predominantly present as singly scattered cells. Highlights T lymphocytes in lymphoid aggregate also. (estimated ~5-10% of marrow cellularity). CD8: Highlights subset of T lymphocytes, predominantly present as single scattered cells. Highlights subset of T lymphocytes in lymphoid aggregates also. CD20: Highlights B lymphocytes, predominantly present at singly scattered cells. Highlights B lymphocytes in lymphoid aggregate also. (estimated ~5-10% of marrow cellularity). CD34: Highlights vascular endothelium and no increased in blasts (less than 3% of marrow cellularity) CD117: Highlights a few scattered myeloid and erythroid precursors (2 to 5% of overall marrow cellularity) 11/03/2023 3:17 PM [facility] Flow Cytometry Summary Bone marrow, flow cytometry ([id number]): - No clonal B-cell or increased blast population detected. 11/03/2023 3:17 PM [facility] Clinical History The patient is a 53-year-old woman with history of seizure disorder (on Keppra and Dilantin), vitamin B12 deficiency who presented for evaluation of chronic normocytic anemia. He underwent bone marrow biopsy procedure for evaluation of anemia. 11/03/2023 3:17 PM [facility] Materials Received Received are 22 slide(s) and 3 blocks labeled [id number] along with a copy of the outside pathology report. [place] [address] . All original materials are returned to the referring institution, along with a copy of our final report. 11/03/2023 3:17 PM [facility] Microscopic Description Overall, the bone marrow specimen is normocellular for age with maturing trilineage hematopoiesis. Increased plasma cells (~5-7% of marrow cellularity, demonstrated by CD138) and mixed B and T lymphocytes (5 to 10% of marrow cellularity, demonstrated by CD20 and CD3) are appreciated. Lymphocytes appear small and cytologically normal. CD34 and CD117 is negative for increased blasts/hematopoietic precursor cells. No overt dysplasia is seen. Mildly increased plasma cells and lymphocytes appear to be reactive and etiologies include but not limited to medication effect, autoimmune disorder or infection. kappa MAYRA / lamda MAYRA may not be needed in this case. Concurrent flow cytometric immunophenotypic analysis of bone marrow shows no clonal B-cell or increased blast population. Correlate with clinical findings and relevant cytogenetic/molecular testing is suggested. 11/03/2023 3:17 PM CDT [facility] Pathologist Location at [facility] 11/03/2023 3:17 PM CDT [facility] Disclaimer The performance characteristics of all immunohistochemical and indirect immunofluorescence stains (if any) cited in this report were determined by the [facility]opathology Laboratory of [facility]. Some of these tests were developed by our own laboratory and have not been cleared or approved by the US Food and Drug Administration. The FDA does not require this test to go through premarket FDA review. These tests are used for clinical purposes. They should not be regarded as investigational or for research. This laboratory is certified under the Clinical Laboratory Improvement Amendments (CLIA) as qualified to perform high complexity clinical laboratory testing. This case has been personally reviewed and interpreted by the attending (teaching) pathologist. 11/03/2023 3:17 PM CDT [facility] Embedded Images 11/03/2023 3:17 PM CDT [facility] Pathology/Cytology BONE MARROW SPECIMEN / Unknown 11/01/2023 9:16 AM CDT 11/02/2023 3:53 PM CDT Miscellaneous samples (specimen) BONE MARROW SPECIMEN / Unknown 11/01/2023 9:16 AM CDT 11/02/2023 3:59 PM CDT Jaime Coleman MD LAB - PATHO LOGY/CYTOLOGY ORDERABLES Performing Organization Address City/State/[facility] Co de Phone Number [facility] [address] [phone] documented in this encounter Visit Diagnoses Diagnosis Illness, unspecified documented in this encounter Care Teams Airfield Manager Relationship Specialty [place] [address] [place] [address] [phone] PCP - General Internal Medicine 03/21/24 documented as of this encounter
--- OUTSIDE RECORDS SUMMARY | 2024-09-02 10:29 | XMS_ITS | Referral Summary ---
Author Organization [facility] at the [facility] Address [address] [place] [id number] Care Team Providers Care Product Support Representative Name Role Phone Angela Demarco MD Primary Care Provider Allergies No known active allergies Medications albuterol HFA (PROVENTIL HFA,VENTOLIN HFA,PROAIR HFA) 90 mcg/actuation inhaler Inhale 2 puffs by mouth every 4 hours as needed for shortness of breath or wheezing Active allopurinoL (ZYLOPRIM) 300 mg tablet TAKE ONE TABLET BY MOUTH EVERY DAY FOR GOUT 03/12/20 14 Active atorvastatin (LIPITOR) 40 mg tablet TAKE ONE TABLET BY MOUTH EVERY EVENING TO LOWER CHOLESTEROL 01/18/20 23 Active fenofibrate nanocrystallized (TRICOR) 145 mg tablet TAKE ONE TABLET BY MOUTH EVERY EVENING FOR TRIGLYCERIDES Active colchicine (Colcrys) 0.6 mg tablet Active levETIRAcetam (KEPPRA) 750 mg tablet Take 1 tablet (750 mg total) by mouth 2 (two) times a day 01/25/[address] (PROTONIX) 40 mg EC tablet TAKE ONE TABLET BY MOUTH EVERY DAY BEFORE MEALS FOR STOMACH 07/10/18 70 Active phenytoin ER (DILANTIN) 100 mg ER capsule TAKE THREE CAPSULES BY MOUTH TWICE DAILY 01/25/20 14 Active ferrous sulfate 325 mg (65 mg of elemental iron) tabletIndications:I gissell Deficiency Anemia Take 1 tablet (325 mg total) by mouth daily with breakfast Active Active Problems Problem Noted Date Diagnosed Date 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 Follow up in: three months Heart murmur 11/02/2021 Pulmonary hypertension 09/14/2021 Hepatomegaly 04/20/2021 Other dietary vitamin B12 deficiency anemia 02/2021 Fatty (change of) liver, not elsewhere classifie d 01/29/2021 Overview (04/16/2023): Last Assessment & Plan: Condition: stable Follow up in: three months Benign prostatic hyperplasia without lower urinary tract symptoms 01/19/2021 Overview (04/16/2023): Last Assessment & Plan: Condition: stable Praful is encouraged to eat a diet rich on legumes and soybeans, to decrease red meats intake. To eat fish rich on omega-3 such as salmon at least once a week. 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 Relax causes stress can aggravate gout. Ice and elevate the joint when having a gout flares up. Take All the medications as prescribed. Follow up in: three months Seizure 02/13/2018 Overview (04/16/2023): Last Assessment & Plan: Condition: stable Take medication as prescribed. No bathing, swimming, operating dangerous machinery, climbing ladders without supervision No driving unless cleared by your health care provider. Follow up in: three months Pham's esophagus 03/20/2015 Hyperlipidemia 01/24/2014 Asthma 01/23/2014 Overview (04/16/2023): Last Assessment & Plan: Condition: stable Reviewed trigger avoidance and reviewed proper use of inhalers and rescue medications. Reviewed concerning signs/symptoms and ER precautions. Follow up in: three months (History of) Resolved Problems Problem Noted Date Diagnosed Date Resolved Date Mitral valve regurgitation 09/14/2021 1 Immunizations Immunization Administration Dates Next Due Influenza, Quadrivalent, Spl it, Intramuscular 03/28/2022,04/20/2021,04/09/2020 Influenza, Quadrivalent, Spl it, Preservative Free, Intramuscular 03/27/2018 Tdap 07/10/2012 ZOSTER Recombinant 07/06/2021 Social History Tobacco Use Types Packs/Day Years Used Date Smoking Tobacco: Never Smokeless Tobacco: Current Chew AUDIT-C Answer Date Recorded Q1: How often do you have a drink containing alc ohol? Patient declined 01/02/2024 Average Number of Drinks Not on file 024 Frequency of Binge Drinking Not on file 12/09 Personal Safety Answer Date Recorded Have you ever been in or are you currently in a harmful physical or emotional relationship or is someone making you feel afraid or unsafe? 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 Gender Identity Not on file Sexual Orientation Not on file Last Filed Vital Signs Vital Sign Reading Time Taken Comments Blood Pressure 123/70 01/02/2024 11:53 AM CDT Pulse 54 01/02/2024 11:53 AM CDT Temperature 36.1 C (97 F) 01/02/2024 11:33 AM CDT Respiratory Rate 12 01/02/2024 11:53 AM CDT Oxygen Saturation 100% 01/02/2024 11:53 AM CDT Inhaled Oxygen Concentration - - Weight 69.9 kg (154 lb) 01/02/2024 10:59 AM CDT Height 177.8 cm (5' 10 ) 01/02/2024 10:59 AM CDT Body Mass Index 22.1 01/02/2024 10:59 AM CDT Plan of Treatment Not on file Advance Directives For more information, please contact: [phone] * Full Code (Latest Code Status on File) Date Activated Date Inactivated Comments 01/02/2024 10:54 AM 01/02/2024 4:30 PM * Full Code Date Activated Date Inactivated Comments 05/08/2023 7:07 AM 05/08/2023 1:48 PM Care Teams Product Support Representative Relationship Specialty Start Date End Date Angela Demarco MD [address] [place] [address] PCP - General Internal Medicine 03/30/23
--- OUTSIDE RECORDS SUMMARY | 2024-09-02 10:29 | XMS_ITS | CONTINUITY OF CARE DOCUMENT ---
Author Name steffi kapadia Address Unknown Organization [facility] Address [address] [facility] [address] [place] [address] Phone [phone] Care Team Providers Care [employer] Name Role Phone Ginna MANZO, Champ Unavailable NUNU EASTMAN MD Unavailable [phone] NUNU EASTMAN MD Unavailable [phone] PROBLEMS Condition Status Date Provider Notes GERD active AICHA POTTER MD Personal history of other di sorders of nervous system and sense organs active AICHA POTTER MD Pham's esophagus active AICHA POTTER MD Cardiology examination active Champ Chacko MD Family History Coronary Hear t Disease male < 55: active Champ Chacko MD Hyperlipidemia active Champ Chacko MD Heart murmur active Champ Chacko MD Orthostatic syncope active Champ Chacko MD Asthma active Champ Chacko MD (History of) Chest pain-type to be determined active Kamran Chacko MD Other and unspecified hyperlipidemia active AICHA POTTER MD Asthma, unspecified active AICHA POTTER MD ENCOUNTERS Date Type Provider Location Encounter Diag nosis - In-person encounter Office Visit Champ Chacko MD [place] [facility] - In-person encounter Office Visit Champ Chacko MD [place] [facility] AsthmaOrthostatic syncope - In-person encounter Office Visit Champ Chacko MD [place] [facility] Chest pain-type to be determined - In-person encounter Office Visit Champ Chacko MD [facility] Cardiology examinationFamily History Coronary Heart Disease male < 55:HyperlipidemiaHeart murmur - In-person encounter Office Visit AICHA POTTER MD [place] [facility] - In-person encounter Office Visit AICHA POTTER MD [facility] - In-person encounter Office Visit AICHA POTTER MD [facility] - In-person encounter Office Visit AICHA POTTER MD [facility] - In-person encounter Office Visit AICHA POTTER MD [facility] - In-person encounter Office Visit AICHA POTTER MD [facility] - In-person encounter Office Visit AICHA POTTER MD [facility] - In-person encounter Office Visit AICHA POTTER MD [facility] - In-person encounter Office Visit AICHA POTTER MD [facility] - In-person encounter Office Visit AICHA POTTER MD [facility] Pham's esophagus - In-person encounter Office Visit AICHA POTTER MD [facility] - In-person encounter Office Visit AICHA POTTER MD [facility] - In-person encounter Office Visit AICHA POTTER MD [facility] - In-person encounter Office Visit AICHA POTTER MD [facility] - In-person encounter Office Visit AICHA POTTER MD [facility] - In-person encounter Office Visit AICHA POTTER MD [facility] - In-person encounter Office Visit Jude [facility] - In-person encounter Office Visit AICHA POTTER MD [facility] - In-person encounter Office Visit AICHA POTTER MD [facility] - In-person encounter Office Visit AICHA POTTER MD [facility] - In-person encounter Office Visit AICHA POTTER MD [facility] - In-person encounter Office Visit AICHA POTTER MD [facility] - In-person encounter Office Visit AICHA POTTER MD [facility] - In-person encounter Office Visit AICHA POTTER MD [facility] - In-person encounter Office Visit AICHA POTTER MD [facility] Asthma, unspecifiedGERDOther and unspecified hyperlipidemiaPersonal history of other disorders of nervous system and sense organs - In-person encounter Office Visit Jude Do [place] [facility] - In-person encounter Office Visit Jude Do [place] [facility] - In-person encounter Office Visit Jude Do [facility] - In-person encounter Office Visit Jude Do [facility] - In-person encounter Office Visit Jude [facility] - In-person encounter Office Visit [facility] - In-person encounter Office Visit [facility] - In-person encounter Office Visit [facility] - In-person encounter Office Visit [facility] - In-person encounter Office Visit [facility] - In-person encounter Office [facility] - [facility] encounter [facility] - In-person encounter Office Visit [facility] - In-person encounter Office Visit [facility] - In-person encounter Office Visit [facility] - In-person encounter Office Visit [facility] VITAL SIGNS Date Observation Value Provider Body Mass Index (Ratio) 22.09 kg/m2 Xenia [place] blood pressure, diastolic -1 mm[Hg] Ivelisse nkLogic blood pressure, systolic 115 mm[Hg] Elizabeth [facility]Logic blood pressure, diastolic 75 mm[Hg] Norberto rret blood pressure, systolic 115 mm[Hg] Jar ret pulse rate 64 /min Sergey y blood pressure, cuff size regular Ja rret oxygen saturation, oximetry 100 % Sergey respiratory rate E&M 14 /min Sergey weight E&M 154 [lb_av] Sergey y height E&M 70 [in_i] Sergey y Body Mass Index (Ratio) 22.24 kg/m2 Rishi Ashley blood pressure, diastolic -1 mm[Hg] Li nkLogic blood pressure, systolic 110 mm[Hg] Elizabeth kLogic blood pressure, cuff size regular Ke rri Gruenenfelder blood pressure, diastolic 60 mm[Hg] Ke rri Gruenenfelder blood pressure, systolic 110 mm[Hg] Eddie ri Teduenenfelder oxygen saturation, oximetry 97 % Arline Grdungnenfelder respiratory rate E&M 12 /min Arline G ruenenfelder pulse rate 81 /min Arline Mavericknfe lder weight E&M 155 [lb_av] Arline Gruenenfe lder height E&M 70 [in_i] Arline Grdungnenfe lder Body Mass Index (Ratio) 24.82 kg/m2 Gab Chacko MD blood pressure, diastolic 60 mm[Hg] Ca therine Rafy blood pressure, systolic 105 mm[Hg] Cat herine Rafy oxygen saturation, oximetry 98 % Mandy Rafy respiratory rate E&M 16 /min Catheri ne Rafy pulse rate 75 /min Mandy Rafy weight E&M 173 [lb_av] Mandy Houston blood pressure, cuff size regular Ca therine Houston height E&M 70 [in_i] Mandy Rafy weight E&M 169 [lb_av] Tj hua Body Mass Index (Ratio) 24.25 kg/m2 Gab Chacko MD blood pressure, diastolic 76 mm[Hg] Ivelisse nkLogic blood pressure, systolic 118 mm[Hg] Elizabeth kLogic blood pressure, diastolic 76 mm[Hg] Sa ra Khan blood pressure, systolic 118 mm[Hg] Katerin a Khan oxygen saturation, oximetry 99 % Tete Khan respiratory rate E&M 19 /min Tete Si ms pulse rate 64 /min Tete Khan blood pressure, cuff size regular Sa ra Khan weight E&M 169 [lb_av] Tete Khan height E&M 70 [in_i] Tete Khan ALLERGIES No Known Drug Allergies RESULTS Date Observation Value Provider Reference Range Interpretation Location 3 lipoprotein, beta, serum, point, quantitative, calculated 82 mg/dL [facility] 0-99 3 very low density lipoproteins 30 mg/dL [facility] 5-40 3 HDL cholesterol, serum 45 mg/dL [facility] >39 3 triglyceride, serum, random 148 mg/dL [facility] 0-149 3 cholesterol, serum 157 mg/dL [facility] 120-787 3508/01/2 5 thyroid stimulating hormone, serum 2.800 ??IU/ML [facility] 0.270 - 4.200 5 very low density lipoproteins 113.2 mg/dL [facility] 5.0 - 40.0 High 5 LDL/HDL (low-density lipoprotein/high-den sity lipoprotein) ratio -19.2 RATIO [facility] - 5 lipoprotein, beta, serum, point, quantitative, calculated -999.0 (?) [facility] 0.0 - 100.0 Low 5 HDL cholesterol, serum 52.0 mg/dL [facility] 35.0 - 55.0 5 cholesterol, serum 278.0 mg/dL [facility] 0.0 - 200.0 High 5 triglyceride, serum, fasting 566.0 mg/dL [facility] 0.0 - 150.0 High 5 Total LDL-cholesterol direct 142.0 mg/dL [facility] 0.0 - 100.0 High 5 anion gap, serum 18.1 [facility] - 5 albumin/globulin ratio, serum 1.9 g/dL [facility] 1.1 - 2.5 globulin, serum 2.7 [facility] 2.3 - 3.8 urea nitrogen/creatinine ratio, serum 16.7 [facility] - Estimated Glomerular Filtration Rate (calc) 95.7 (?) [facility] 59.0 - chloride, serum 97.9 mmol/L [facility] 98.0 - 107.0 Low potassium, serum 4.3 mmol/L [facility] 3.5 - 5.1 sodium, serum 139.0 mmol/L [facility] 136.0 - 145.0 creatinine, serum 0.9 mg/dL [facility] 0.7 - 1.2 carbon dioxide, venous blood 23.0 mmol/L [facility] 22.0 - 29.0 albumin, serum 5.0 g/dL [facility] 3.5 - 5.2 calcium, serum 9.7 mg/dL [facility] 8.6 - 10.2 aspartate aminotransferase (SGOT), serum 66.0 1/L [facility] 0.0 - 40.0 High alkaline phosphatase, serum 84.0 1/L [facility] 40.0 - 130.0 alanine aminotransferase (SGPT), serum 33.0 1/L [facility] 0.0 - 41.0 protein, total, serum 7.7 g/dL [facility] 6.6 - 8.7 bilirubin, serum, total 0.2 mg/dL [facility] 0.0 - 1.2 urea nitrogen, blood 15.0 mg/dL [facility] 6.0 - 20.0 blood glucose, random 112.0 mg/dL [facility] 74.0 - 99.0 High red blood cell distribution width, size density 54.5 fL [facility] - immature granulocytes, percentage of total cells, blood 0.3 % Link[facility] - 5 nucleated red blood cells as percent of blood leukocytes 0.0 % [facility] - 5 red blood cell (erythrocyte) count, per high power field 0.0 10*3/UL [facility] - 5 eosinophils as percent of blood leukocytes 2.8 % [facility] - 5 neutrophils as percent of blood leukocytes 60.1 % [facility] - 5 Absolute Neutrophils 4.1 CELLS/UL [facility] 1.5 - 7.8 5 basophils as percent of blood leukocytes 0.7 % [facility] - 5 Absolute Basophils 0.1 CELLS/UL [facility] 0.0 - 0.2 5 monocytes as percent of blood leukocytes 8.2 % [facility] - 5 Absolute Monocytes 0.6 CELLS/UL [facility] 0.2 - 1.0 5 lymphocytes as percent of blood leukocytes 27.9 % [facility] - 5 Absolute Lymphocytes 1.9 CELLS/UL [facility] 0.9 - 3.9 5 mean platelet volume 9.3 (?) [facility] - 5 platelet count 330.0 THOUSAND/ UL [facility] 100.0 - 400.0 5 mean corpuscular hemoglobin concentration, RBC 31.8 G/DL [facility] 31.0 - 38.0 5 mean corpuscular hemoglobin, RBC 31.2 pg [facility] 25.0 - 35.0 5 mean corpuscular volume, RBC 98.1 fL [facility] 75.0 - 100.0 5 hematocrit, blood 47.2 % [facility] 35.0 - 55.0 5 hemoglobin, blood 15.0 g/dL [facility] 11.5 - 16.5 5 erythrocyte count, whole blood 4.8 MILLION/U L [facility] 3.5 - 5.5 5 hemoglobin A1C, blood, as % of total hemoglobin 5.5 % [facility] 4.0 - 5.6 HISTORY OF MEDICATION USE Medication Status Instructions Dates Provider Indications Com ments atorvastatin 40 mg tablet active TAKE ONE TABLET BY MOUTH EVERY EVENING TO LOWER CHOLESTEROL fenofibrate nanocrystallized 145 mg tablet active TAKE ONE TABLET BY MOUTH EVERY EVENING FOR TRIGLYCERIDES levetiracetam 750 mg tablet completed - Arline Suarez pantoprazole 40 mg tablet,delayed release (DR/EC) active Take 1 tablet by mouth once a day omeprazole 20 mg capsule,delayed release(DR/EC) completed 1 tablet by mouth once a day - Arline Suarez thiamine HCl (vitamin B1) 100 mg tablet active 1 tablet once a day Mandy Houston allopurinol 300 mg tablet active 1 tablet by mouth once a day Mandy Rafy HYDROCODONE-ACETAM INOPHEN 7.5-325 MG ORAL TABLET completed ONE TABLET DAILY - AICHA POTTER MD Senokot-S 8.6-50 mg tablet completed 2 tablet by mouth every night - Arline Suarez ProAir HFA 90 mcg/actuation HFA aerosol inhaler active 1 puff twice a day Mandy Houston atenolol 50 mg tablet completed 1 tablet by mouth once a day - Arline Suarez potassium chloride 20 mEq tablet,ER particles/crystals active 1 tablet by mouth once a day Mandy Houston Dilantin Extended 100 mg capsule active 3 capsule by mouth every night Mandy Houston Keppra 750 mg tablet active 1 tablet by mouth twice a day Mandy Houston Advair Diskus 250-50 mcg/dose blister with device active twice a day as needed Mandy Houston albuterol sulfate 2.5 mg/3 mL (0.083 %) solution for nebulization completed Use four times a day as needed - Arline Suarez SOCIAL HISTORY Date Observation Value Provider smoking status Never smoker Champ Chacko MD social history E&M Marital Statu s: Single Kelly guerrero: 4 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 Smoking History: Ebony mcclain has never smoked. 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 Champ Chacko MD social history reviewed E&M revi ewed - no changes required Champ Chacko MD FAMILY HISTORY Family Member Condition Father [place] male <55 Father Family History Coron gerardo Heart Disease male < 55: INSURANCE PROVIDERS Payer name Policy type / Coverage type [place] [employer] libertarian ID SELF PAY [id number] ADVANCE DIRECTIVES Name Date DISCUSSED - NO DECISION MADE TREATMENT PLAN Date Name Performer [id number],B, Champ lui MD [id number],S, Champ lui MD [id number],S, Champ lui MD [id number],BChamp MD [id number],C,S econdary to heat induced vasodilation in shower combined with rapid change of position. Explained in detail to patient and gave instructions on avoiding a recurrance. Champ Chacko MD [id number],SChamp MD [id number],S, Champ lui MD [id number],S, Champ lui MD [id number],S, Champ lui MD [id number],SChamp MD [id number],S, Champ lui MD [id number],S, Champ lui MD [id number],S, Champ lui MD [id number],N, Champ lui MD Cardiology Champ Chacko MD Cardiology Champ Chacko MD Cardiology Champ Chacko MD Cardiology Champ Chacko MD Cardiology Champ Chacko MD Cardiology Champ Chacko MD Cardiology Champ Chacko MD Cardiology Champ Chacko MD Cardiology:Secondary to heat induced vasodilation in shower combined with rapid change of position. Explained in detail to patient and gave instructions on avoiding a recurrance. Champ Chacko MD Cardiology Champ Chacko MD Cardiology Champ Chacko MD Cardiology Champ Chacko MD Cardiology Champ Chacko MD Cardiology Champ Chacko MD Cardiology Champ Chacko MD Cardiology Champ Chacko MD Cardiology Champ Chacko MD Cardiology Champ Chacko MD Date Name Stress Routine Phenytoin (Dilantin) , Serum LIPID PANEL Levetiracetam (Keppr a), S Phenytoin (Dilantin) , Serum HEMOGLOBIN A1c TSH, 3RD GENERATION W/REFLEX TO FT4 LIPID PANEL COMPREHENSIVE METABO LIC PANEL W/EGFR CBC (INCLUDES DIFF/P LT) HISTORY OF PROCEDURES Procedure Date Procedure Name Provider Procedure Notes S tatus EKG Champ Chacko MD complete d FAROOQ Chacko MD complete d FAROOQ Chacko MD complete d
--- OUTSIDE RECORDS SUMMARY | 2024-09-02 10:29 | XMS_ITS | Data Portability ---
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 [address] [place] [address] 05/10/2021 15:08:48 05/11/2021 15:43:56 Atypical chest pain 053197704 R07.89 Low blood pressure 51815 003 I95.9 [id number] MD Stormy Padilla (Adult Med) [address] [place] [address] 07/21/2021 15:08:08 07/22/2021 09:52:19 Degeneration of thoracic intervertebral disc 63950363 M51.34 Chronic anemia 269771142 D64.9 Labs 01/29/2021 WBC 5.8, Hb12.6, HCT 38, [id number] 12/09/2019 WBC 11.4 Hb 12.1 Hct 35.5Labs 12/10/2019 WBC 7.8 Hb 11.9 Hct 35.4, normal B12 and iron studiesLab s 01/06/2020 Hb 11.4 Hct 33.9Labs 03/02/2020 Hb 13 Hct 39The cause of his anemia is unclear, but BM depression from his Dilantin and ETOH are possibilit ies. possibilit y. His old records were reviewed and he actually had an EGD on 01/22/2015 with RE, Pham's and Esophageal erythema. He also had a colonoscop y 09/19/2013 that confirmed internal hemorrhoid s. EGD 03/31/2020 Gastritis, Pham's Esophagus (Q 2years)Col onoscopy 03/31/2020 Questionab le mass in the rectum, polyp, Internal hemorrhoid s. Pathology Tubular adenoma. Q 3 years Colonoscop y 02/16/2021 Diverticul osis, Hyperplast ic polyp and internal hemorrhoid s He has an appointmen t with the hematologi st and with regards to iron, he has never been iron deficient Low blood pressure 06561 003 I95.9 Meds (Dilantin? )He has been on this dose of Dilantin prior to establishi care at this officeHis Dilantin level was normal on 01/27/2020A ddendumRec heck Dilantin level Thoracic back pain 22937 8004 M54.6 Seizure disorder 8277217 02 G40.909 Seizure free [id number] MD Stormy Padilla (Adult Med) [address] [place] [phone] 08/04/2021 14:18:25 08/05/2021 13:20:33 Dyspnea 350510816 R06.00 Low blood pressure 09275 003 I95.9 Meds (Dilantin? )He has been on this dose of Dilantin [facility] at this officeHis Dilantin level was normal on 01/27/2020R echeck Dilantin levelRevie w the TTE [id number] MD Stormy Padilla (Adult Med) [address] [place] [address] 09/15/2021 15:21:13 09/16/2021 16:33:43 Chest wall pain 649811781 R07.89 His Chest pain remains an issue and it is unexplaine d by the CXR and xray of the Thoracic spine. I will need better definition of the chest wall with a CT scan Echocardio gram abnormal 035728509 R93.1 Low blood pressure 05812 003 I95.9 Meds but the Dilantin level was normal and moreover, he has been on this dose of Dilantin prior to [facility] care at this office.His Dilantin level was normal on 01/27/2020 and again on 08/04/2021T he TTE suggests moderate MR and mild MR and other than dyspnea, he remains asymptomat ic with his low normal blood pressure.I will have him seen by the cardiologi Mitral judie ve regurgitation 52594162 I34.0 Pulmonary hypertension 69142772 I27.20 [id number] MD Stormy Padilla (Adult Med) [address] [place] [address] 11/03/2021 15:46:41 11/03/2021 16:10:01 Degeneration of thoracic intervertebral disc 63968366 M51.34 Gout 03951275 M10.9 [id number] MD Stormy Padilla (Adult Med) [address] [place] [address] 03/28/2022 14:45:44 03/29/2022 08:23:44 Administration of influenza vaccine 16835225 Z23 Screening for malignant neoplasm of prostate 253285391 Z12.5 Chews tobacco 04148222 Z 72.0 Discourage d Tubular ad enoma of colon 720984400 D12.6 Due 2022 Follow-up visit 59438373 9 Z09 Impaired f asting glycemia 853693508 R73.01 Discussed Disorder o f lipid metabolism 879860458 E78.9 Immunization advised 310 750146 Z71.9 Gout 30151202 M10.9 Chronic anemia 522091553 D64.9 Labs 03/21/2022 Hb 10, Hct 30Labs 01/29/2021 WBC 5.8, Hb12.6, HCT 38, [id number] 12/09/2019 WBC 11.4 Hb 12.1 Hct 35.5Labs 12/10/2019 WBC 7.8 Hb 11.9 Hct 35.4, normal B12 and iron studiesLab s 01/06/2020 Hb 11.4 Hct 33.9Labs 03/02/2020 Hb 13 Hct 39The cause of his anemia is unclear, but BM depression from his Dilantin and ETOH are possibilit ies. His old records were reviewed and he actually had an EGD on 01/22/2015 with RE, Pham's and Esophageal erythema. He also had a colonoscop y 09/19/2013 that confirmed internal hemorrhoid s. EGD 03/31/2020 Gastritis, Pham's Esophagus (Q 2years)Col onoscopy 03/31/2020 Questionab le mass in the rectum, polyp, Internal hemorrhoid s. Pathology Tubular adenoma. Q 3 years Colonoscop y 02/16/2021 Diverticul osis, Hyperplast ic polyp and internal hemorrhoid s He was seen by the hematologi st who has since referred him to the neurologis t regarding the need for him to continue dual therapy for his seizure D/O Medication monitoring 39 9068942 Z51.81 Endoscopy abnormal 49495 3003 R93.89 Gastritis, Pham's? Pham's esophagus 3029 36749 K22.70 [id number] DIANNE DRAKE [facility] [address] [place] [address] 04/27/2022 15:00:35 01/18/2023 10:12:53 Pham's esophagus 155594748 K22.70 Upon further review of pathology from EGD 03/31/2020 patient does not appear to meet criteria for Pham's esophagus. There is predominan tly squamocolu mnar mucosa and no dysplasia. (Unable to change diagnosis tied to orders at this time). Per Dr. Tan' s dictation will proceed with repeat EGD at this time. Patient to remain on pantoprazo le daily. labs up to date CMP and CBC in chart 03/21/2022 Screening for malignant neoplasm of colon 072933576 Z12.11 Colonoscop y 03/31/2020 with multiple polyps removed:as cending colon - tubular adenomades cending colon - serratedsi gmoid- hyperplast icrectum - mild hyperplast ic Repeat colonoscop y in 3 years; due March 2023 Gastritis 3377003 K29.70 remain on pantoprazo le [id number] [facility] [address] [place] [address] 05/11/2022 09:34:14 05/12/2022 14:04:02 Tubular adenoma of colon 096986236 D12.6 Due 2022 Impaired f asting glycemia 514507724 R73.01 Discussed Immunization advised 310 168475 Z71.9 Chronic anemia 377381778 D64.9 Labs 04/13/22 Hb 10.9/32Lab s 03/21/2022 Hb 10, Hct 30Labs 01/29/2021 WBC 5.8, Hb12.6, HCT 38, [id number] 12/09/2019 WBC 11.4 Hb 12.1 Hct 35.5Labs 12/10/2019 WBC 7.8 Hb 11.9 Hct 35.4, normal B12 and iron studiesLab s 01/06/2020 Hb 11.4 Hct 33.9Labs 03/02/2020 Hb 13 Hct 39The cause of his anemia is unclear, but BM depression from his Dilantin and ETOH are possibilit ies. His old records were reviewed and he actually had an EGD on 01/22/2015 with RE, Pham's and Esophageal erythema. He also had a colonoscop y 09/19/2013 that confirmed internal hemorrhoid s. EGD 03/31/2020 Gastritis, Pham's Esophagus (Q 2years)Col onoscopy 03/31/2020 Questionab le mass in the rectum, polyp, Internal hemorrhoid s. Pathology Tubular adenoma. Q 3 yearsColon oscopy 02/16/2021 Diverticul osis, Hyperplast ic polyp and internal hemorrhoid s He was seen by the hematologi st who has since referred him to the neurologis t regarding the need for him to continue dual therapy for his seizure D/O Pham's esophagus 3029 84638 K22.70 [id number] KOMAL Bahena (Peds) [address] [place] [phone] 05/13/2022 08:23:49 05/24/2022 09:10:09 Administration of SARS-CoV-2 antigen vaccine 338545797 Z23 [id number] MD Stormy Padilla (Adult Med) [address] [place] [phone] 10/25/2022 11:37:46 10/26/2022 10:22:47 Unintentional weight loss 427892772 R63.4 Another 5 lb weight loss since his last visitEGD 07/12/2022 (Pham's , gastritis) Labs 08/2022 okayColono scopy 03/2020 and 02/16/2021N L TSH 01/05/2021N L PSA Fall W19.XXXA [id number] DIANNE DRAKE [facility] [address] [address] 11/07/2022 10:47:36 11/10/2022 14:43:34 Pham's esophagus 459249194 K22.70 Patient to remain on pantoprazo le daily, indefinite ly. Has enough refills currently. Still needing endoscopic ultrasound . Order was sent to [facility]. Gastritis 6131528 K29.70 remain on pantoprazo le Screening for malignant neoplasm of colon 091737196 Z12.11 Colonoscop y 03/31/2020 with multiple polyps removed:as cending colon - tubular adenomades cending colon - serratedsi gmoid- hyperplast icrectum - mild hyperplast ic Repeat colonoscop y in 3 years; due March 2023 [id number] MD Stormy Padilla (Adult Med) [address] [place] [address] 12/06/2022 11:57:55 12/07/2022 10:03:46 Unintentional weight loss 862936035 R63.4 - 1.8 lb OV 10/25/2022 nother 5 lb weight loss since his last visitEGD 07/12/2022 (Pham's , gastritis) Labs 08/2022 okayColono scopy 03/2020 and 02/16/2021N L TSH 01/05/2021N L PSA Fall W19.XXXA Chronic anemia 253151014 D64.9 He remains anemic, (10/25/2022 ) OV 10/25/2022L abs 04/13/22 Hb 10.9/Lab s 03/21/2022 Hb 10, Hct 30Labs 01/29/2021 WBC 5.8, Hb12.6, HCT 38, [id number] 12/09/2019 WBC 11.4 Hb 12.1 Hct 35.5Labs 12/10/2019 WBC 7.8 Hb 11.9 Hct 35.4, normal B12 and iron studiesLab s 01/06/2020 Hb 11.4 Hct 33.9Labs 03/02/2020 Hb 13 Hct 39The cause of his anemia is unclear, but BM depression from his Dilantin and ETOH are possibilit ies. His old records were reviewed and he actually had an EGD on 01/22/2015 with RE, Pham's and Esophageal erythema. He also had a colonoscop y 09/19/2013 that confirmed internal hemorrhoid s. EGD 03/31/2020 Gastritis, Pham's Esophagus (Q 2years)Col onoscopy 03/31/2020 Questionab le mass in the rectum, polyp, Internal hemorrhoid s. Pathology Tubular adenoma. Q 3 yearsColon oscopy 02/16/2021 Diverticul osis, Hyperplast ic polyp and internal hemorrhoid s He was seen by the hematologi st who has since referred him to the neurologis t regarding the need for him to continue dual therapy for his seizure D/O History of lacunar cerebrovascular accident 5068391282 [address]86[address] of the brain done on 01/28/2022 and ordered by his neurologis t.Discusse d on 03/28/2022 and again today 12/06/2022. Impairment of balance 38 4090395 R26.89 Multifacto rial; Low normal BP?, mild anemia?, Cerebral infarcts?T he CT scan of the brain had confirmed lacunar infarcts in January,.He needs a MRI of the brain [id number] DIANNE DRAKE [facility] [address] [place] [address] 02/14/2023 15:22:28 02/15/2023 12:25:32 Pham's esophagus 644698059 K22.70 Patient to remain on pantoprazo le daily, indefinite ly. Has enough refills currently. Still needing endoscopic ultrasound for submucosa mass of duodenum. Order was sent to [facility]. Patient states they keep rescheduli ng him. I will attempt to contact [facility]. Gastritis 4277395 K29.70 remain on pantoprazo le; has enough refills Screening for malignant neoplasm of colon 731058408 Z12.11 Colonoscop y 03/31/2020 with multiple polyps removed:as cending colon - tubular adenomades cending colon - serratedsi gmoid- hyperplast icrectum - mild hyperplast ic Repeat colonoscop y in 3 years; due March and CMP in chart 02/06/23 Chronic anemia 939624996 D64.9 Per [facility] [place], Dr. Yong Vaughn's A&P Likely anemia secondary to medication induced or bone marrow disorder.L abs noted. Hemoglobin stable at 10.3. He is asymptomat ic other than some weight loss. He will continue vitamin B12 500 mcg daily. No need for bone marrow biopsy unless patient is more symptomati c or hemoglobin drop below 9. Follow-up in 6 months. Vitamin B12 deficiency . B12 level stable. Continue current vitamin B12 dose of 500 mcg daily.Hist ory of seizure disorder. He is asymptomat ic on Dilantin and Keppra. I have recommende d him to discuss with the primary care doctor for neurology follow-up. History of lacunar cerebrovascular accident 6271470804 9101 Z86.73 managed by neurology Mitral judie ve regurgitation 07369008 I34.0 Cardiac clearance sent to Dr. Chacko [id number] MD Stormy Padilla (Adult Med) [address] [place] [address] 07/14/2023 15:46:45 07/17/2023 15:26:21 Administration of influenza vaccine 11099113 Z23 Screening for malignant neoplasm of prostate 486730031 Z12.5 General ex amination of patient 649123253 Z00.01 Disorder o f lipid metabolism 152648144 E78.9 Gout 39230287 M10.9 Thoracic back pain 66740 8004 M54.6 Nicotine dependence 5629 4008 F17.200 Discussed [id number] Angela Demarco MD [facility] (Adult Med) [address] [place] [address] 08/28/2023 16:00:51 08/30/2023 08:09:58 Chronic anemia 562101533 D64.9 Labs 07/19/2023 Hb 10, Hct 31Hyperpla stic polyp 07/11/2023Fo llowup with Dr Vaughn (Hematolog y) OV 12/06/2022H e remains anemic, (10/25/2022 ) OV 10/25/2022L abs 04/13/22 Hb 10.9/32Lab s 03/21/2022 Hb 10, Hct 30Labs 01/29/2021 WBC 5.8, Hb12.6, HCT 38, [id number] 12/09/2019 WBC 11.4 Hb 12.1 Hct 35.5Labs 12/10/2019 WBC 7.8 Hb 11.9 Hct 35.4, normal B12 and iron studiesLab s 01/06/2020 Hb 11.4 Hct 33.9Labs 03/02/2020 Hb 13 Hct 39The cause of his anemia is unclear, but BM depression from his Dilantin and ETOH are possibilit ies. His old records were reviewed and he actually had an EGD on 01/22/2015 with RE, Pham's and Esophageal erythema. He also had a colonoscop y 09/19/2013 that confirmed internal hemorrhoid s. EGD 03/31/2020 Gastritis, Pham's Esophagus (Q 2years)Col onoscopy 03/31/2020 Questionab le mass in the rectum, polyp, Internal hemorrhoid s. Pathology Tubular adenoma. Q 3 yearsColon oscopy 02/16/2021 Diverticul osis, Hyperplast ic polyp and internal hemorrhoid s He was seen by the hematologi st who has since referred him to the neurologis t regarding the need for him to continue dual therapy for his seizure D/O Hyperplast ic polyp of intestine 10971539 K63.89 07/11/2023 Nasal congestion 5248299 0 R09.81 Acute uppe r respiratory infection 85891948 J06.9 Disorder o f lipid metabolism 295860206 E78.9 [id number] Angela Demarco MD [facility] (Adult Med) [address] [place] [phone] 03/25/2024 15:48:56 03/26/2024 16:01:15 Chronic anemia 402795032 D64.9 He remains anemic and he is under the care of the hematologi sts OV 08/28/2023L abs 07/19/2023 Hb 10, Hct 31Hyperpla stic polyp 07/11/2023Fo llowup with Dr Vaughn (Hematolog y) OV 12/06/2022H e remains anemic, (10/25/2022 ) OV 10/25/2022L abs 04/13/22 Hb 10.9/32Lab s 03/21/2022 Hb 10, Hct 30Labs 01/29/2021 WBC 5.8, Hb12.6, HCT 38, [id number] 12/09/2019 WBC 11.4 Hb 12.1 Hct 35.5Labs 12/10/2019 WBC 7.8 Hb 11.9 Hct 35.4, normal B12 and iron studiesLab s 01/06/2020 Hb 11.4 Hct 33.9Labs 03/02/2020 Hb 13 Hct 39The cause of his anemia is unclear, but BM depression from his Dilantin and ETOH are possibilit ies. His old records were reviewed and he actually had an EGD on 01/22/2015 with RE, Pham's and Esophageal erythema. He also had a colonoscop y 09/19/2013 that confirmed internal hemorrhoid s. EGD 03/31/2020 Gastritis, Pham's Esophagus (Q 2years)Col onoscopy 03/31/2020 Questionab le mass in the rectum, polyp, Internal hemorrhoid s. Pathology Tubular adenoma. Q 3 yearsColon oscopy 02/16/2021 Diverticul osis, Hyperplast ic polyp and internal hemorrhoid s He was seen by the hematologi st who has since referred him to the neurologis t regarding the need for him to continue dual therapy for his seizure D/O Seizure disorder 4034050 02 G40.909 Seizure free Administra tion of influenza vaccine 89468567 Z23 Dyspnea 492750816 R06.00 [id number] MD [facility] [address] [place] [address] 06/25/2024 15:15:36 06/27/2024 13:27:26 Chronic anemia 796950185 D64.9 OV 03/25/2024H e remains anemic and he is under the care of the hematologi sts OV 08/28/2023L abs 07/19/2023 Hb 10, Hct 31Hyperpla stic polyp 07/11/2023Fo llowup with Dr Vaughn (Hematolog y) OV 12/06/2022H e remains anemic, (10/25/2022 ) OV 10/25/2022L abs 04/13/22 Hb 10.9/32Lab s 03/21/2022 Hb 10, Hct 30Labs 01/29/2021 WBC 5.8, Hb12.6, HCT 38, [id number] 12/09/2019 WBC 11.4 Hb 12.1 Hct 35.5Labs 12/10/2019 WBC 7.8 Hb 11.9 Hct 35.4, normal B12 and iron studiesLab s 01/06/2020 Hb 11.4 Hct 33.9Labs 03/02/2020 Hb 13 Hct 39The cause of his anemia is unclear, but BM depression from his Dilantin and ETOH are possibilit ies. His old records were reviewed and he actually had an EGD on 01/22/2015 with RE, Pham's and Esophageal erythema. He also had a colonoscop y 09/19/2013 that confirmed internal hemorrhoid s. EGD 03/31/2020 Gastritis, Pham's Esophagus (Q 2years)Col onoscopy 03/31/2020 Questionab le mass in the rectum, polyp, Internal hemorrhoid s. Pathology Tubular adenoma. Q 3 yearsColon oscopy 02/16/2021 Diverticul osis, Hyperplast ic polyp and internal hemorrhoid s He was seen by the hematologi who has since referred him to the neurologis t regarding the need for him to continue dual therapy for his seizure D/O Seizure disorder 2643678 02 G40.909 OV 03/25/2024S eizure free Administra tion of pneumococcal vaccine 41831731 Z23 Health Concerns Section Related Observation LastModified by Organization Detai ls LastModified Time None Recorded Concern Status LastModified by Organization Details LastModified Time None Recorded Advance Directives Directive N: Payers Encounter Date Sequence Insurance Name Policy Number Policy Yarbrough Covered Member ID Yarbrough Member ID Guarantor Name 02/14/2023 1 [facility] (MEDICAID HMO) [id number] Pra[employer] Dc [id number] Praful Dc 07/14/2023 1 *SELF PAY* [facility] Dc 08/28/2023 1 [place] [facility] Prafulsarmad Dc [id number] Praful Dc 03/25/2024 1 [facility] [id number] Praful Dc [id number] Praful Dc 06/25/2024 1 [facility] [id number] [facility] [id number] Praful Dc Notes Date Note Type Note Provider Name and Address Organization Details Recorded Time 02/14/2023 text/html Patient with PMH x of Pham's esophagus, chronic anemia, gout, hepatomegaly, history of lacunar CVA, hyperlipidemia, mitral valve regurgitation, pulmonary hypertension, and seizure disorder presents today for screening colonoscopy. Prior colonoscopy 03/31/2020 with polypectomy; tubular adenoma ascending colon, hyperplastic, and serrated polyps elsewhere. No FH of colon cancer. No FH of other cancers. Patient chews 1 tin of tobacco weekly and stopped drinking alcohol 01/18/2021. Past surgical history includes right elbow. Patient had EGD 07/12/[address] Tan, patient was needing endoscopic ultrasound for submucosa mass of duodenum. Orders were sent to [facility]. Patient states he was never able to get scheduled. They kept rescheduling him. DIANNE DRAKE [address], [place], [address], [place] [facility] 02/14/2023 16:13:52 07/14/2023 text/html I just had that colonoscopy done I feel great My back, arthritis Mr Dc returns, he has been following up with GI and cardiology and he feels well except for some chronic back pain. Angela Demarco MD Attn: Accounting,[address] [facility], [place], [address], [facility] - [facility] 07/14/2023 20:33:56 08/28/2023 text/html I feel great, m y nose won't stop running Mr Dc presents with a a runny nose for the last few days, he denies any cough, SOB, fever or myalgia. Anglea Demarco MD Attn: Accounting,[address] [facility], [place], [address], [facility] 08/28/2023 16:41:08 03/25/2024 text/html And he sent me to [facility] she took a gallon of blood In the interim, he had a bone marrow Bx. done and he was referred by his receptionist to the [facility]. He had additional blood work done and apparently there was concern about his anti-seizure medications and the need as he has been seizure free for 8-10 years. He has not seen his neurologist since 2021, but he has been fully compliant with his Keppra and Dilantin. Angela Demarco MD Attn: Accounting,[address] [facility], [place], [address], [place] [facility] 03/25/2024 18:22:51 06/25/2024 text/html He has a schedul ed appointment with the neurologist., the plan was a follow up after he was seen by the neurologist. Angela Demarco MD Attn: Accounting,[address] [facility], [place], [address], [place] [facility] 06/25/2024 18:48:58
--- OUTSIDE RECORDS SUMMARY | 2024-09-02 10:29 | XMS_ITS | Encounter Summary ---
Author Organization [facility] Address [address] [place] [address] Care Team Providers Care Field Recorder Name Role Phone Angela Demarco MD Primary Care Provider Encounter Details Date Type Department Care Team (Late st Contact Info) Description 11/02/2023 Lab Requisition [facility] - Pathology Lab [address] [place] [address] Jaime Coleman MD [address] [place] [id number] Illness, unspecified Social History Tobacco Use Types Packs/Day Years Used Date Smoking Tobacco: Never Assessed Sex and Gender Information Value Date Recorded Sex Assigned at Not on file Gender Identity Not on file Sexual Orientation Not on file documented as of this encounter Plan of Treatment Not on file documented as of this encounter Visit Diagnoses Diagnosis Illness, unspecified documented in this encounter Care Teams Field Recorder Relationship Specialty [place] [address] [place] [phone] PCP - General Internal Medicine 03/21/24 documented as of this encounter
--- OUTSIDE RECORDS SUMMARY | 2024-09-02 10:29 | XMS_ITS | Clinical Summary ---
Author Organization [facility] at the [facility] Address [address] [place] [id number] Care Team Providers Care Patient Care Coordinator Name Role Phone Angela Demarco MD Primary [...] Intramuscular 03/27/2018 Tdap 07/10/2012 ZOSTER Recombinant 07/06/2021 Surgical History Surgery Date Site/Laterality Comments ELBOW SURGERY Right WRIST FRACTURE SURGERY Right Medical History Medical History Date Comments Colon polyp Anemia Pham esophagus GERD (gastroesophageal reflux disease) Seizures (HCC) Arthritis Hyperlipidemia Family History Medical History Relation Name Comments Pancreatic cancer Brother Colon polyps Father Heart attack Father Relation Name Status Comments Brother Father [...] on file 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 Gender Identity Not on file Sexual Orientation Not on file Obstetrics History Last Filed Vital Signs Vital Sign Reading [...] 01/02/2024 10:59 AM CDT Plan of Treatment Health Maintenance Due Date Last Done Comments Colon Cancer Screening-Colonoscopy 1968 Depression Screening 1968 Hepatitis C Screening 1968 Prostate Cancer Screening-PSA 1968 Hepatitis B Screening 1986 Regular Well Visit/Exam 18-64 1986 Pneumococcal vaccine <65 (1 of 2 - PCV) 1987 Zoster Vaccine (2 of 2) 08/31/2021 07/06/2021 DTaP/Tdap/Td Vaccine (2 - Td or Tdap) 07/10/2022 07/10/2012 Covid-19 Vaccine (6 - 2023-2 5 season) 2024 03/31/2023, 05/13/2022, 07/06/2021, Additional history exists Influenza Vaccine (#1) 2024 , 03/28/2022, 04/20/2021, Additional history exists Advance Directives For more information, please contact: [phone] * Full Code (Latest Code Status on File) Date Activated Date Inactivated Comments 01/02/2024 10:54 AM 01/02/2024 4:30 PM * Full Code Date Activated Date Inactivated Comments 05/08/2023 7:07 AM 05/08/2023 1:48 PM Care Teams Patient Care Coordinator Relationship Specialty Start Date End Date Angela Demarco MD [address] [place] [address] PCP - General Internal Medicine 03/30/23
--- OUTSIDE RECORDS SUMMARY | 2024-09-02 10:29 | XMS_ITS | Referral Summary ---
Author Organization [facility] Address [address] [place] [address] Care Team Providers Care Patient Portal Concierge Name Role Phone Angela Demarco MD Primary Care Provider Source Comments [facility],non-owned Affiliates and Associated Physician Practices is amultiple site organization consisting of ambulatory clinics and hospital sitesin [place], [place], [place] and [place]. This disclosure is being madepursuant to the Care Everywhere program and may not contain all information available regarding this patient. Last updated 18.[facility] Medications Be aware that medications may not [...] 03/21/2024 1:44 PM CDT Plan of Treatment Not on file Care Teams Patient Portal Concierge Relationship Specialty Start Date End Date Angela Demarco MD [address] [place], [place] [phone] PCP - General Internal Medicine 03/21/24
--- OUTSIDE RECORDS SUMMARY | 2024-09-02 10:29 | XMS_ITS | Encounter Summary ---
Author Organization [facility] Address [address] [place] [address] Care Team Providers Care Relief Manager Name Role Phone Angela Demarco MD Primary Care Provider [phone] Encounter Details Date Type Department Care Team (Latest Contact Info) Description 07/01/2003 Inpatient Historical HIS PATIENT IN A BED [place], Mitchell Marlow MD [address] [place] [phone] TOXIC EFFECT GAS/VAPOR NOS (Primary Dx) Social History Tobacco Use Types Packs/Day Years Used Date Smoking Tobacco: Never Assessed Sex and Gender Information Value Date Recorded Sex Assigned at Not on file Legal Sex Male 3:01 AM MARGIN CLERK Gender Identity Not on file Sexual Orientation Not on file documented as of this encounter Plan of Treatment Upcoming Encounters Date Type Department Care Team (Late st Contact Info) Description 09/05/2024 11:45 AM MARGIN CLERK Office Visit [facility] Oncology and Hematology - [place] [address] [facility] [address] [place] [address] Yong Vaughn MD [address] [facility] [address] [place] [address] documented as of this encounter Visit Diagnoses Diagnosis Toxic effect of unspecified gas, fume, or vapor(987.9)- Primary Toxic effect of unspecified gas, fume, or vapor documented in this encounter Care Teams Relief Manager Relationship Specialty Start Date End Date Angela Demarco MD [address] [place] [phone] PCP - General Internal Medicine 07/29/21 documented as of this encounter
--- OUTSIDE RECORDS SUMMARY | 2024-09-02 10:29 | XMS_ITS | Patient Health Summary ---
Author Organization [facility] Address [address] [place] [address] Care Team Providers Care Tank Storage Supervisor Name Role Phone Angela Demarco MD Primary Care Provider Note from [facility],non-owned Affiliates and Associated Physician Practices is amultiple site organization consisting of ambulatory clinics and hospital sitesin [place] and [place]. This disclosure is being madepursuant to the Care Everywhere program and may not contain all information available regarding this patient. Last updated 18.[facility] [employer] Medications Be aware that medications may not [...] Mass Index 22.54 03/21/2024 1:44 PM CDT Procedures * MYELOID MALIGNANCIES MUTATION PNL(Performed 03/21/2024) Performed for Anemia, unspecified type * SOLUBLE TRANSFERRIN RECEPTOR(Performed 03/21/2024) Performed for Anemia, unspecified type * COMPREHENSIVE METABOLIC PANEL(Performed 03/21/2024) Performed for Anemia, unspecified type * ERYTHROPOIETIN(Performed 03/21/2024) Performed for Anemia, unspecified type * IRON + TRANSFERRIN PANEL(Performed 03/21/2024) Performed for Anemia, unspecified type * KAPPA/LAMBDA LITE CHAIN FREE PANEL(Performed 03/21/2024) Performed for Anemia, unspecified type * PROTEIN ELECTROPHORESIS BLOOD(Performed 03/21/2024) Performed for Anemia, unspecified type * CBC W AUTO DIFFERENTIAL(Performed 03/21/2024) Performed for Anemia, unspecified type * BONE MARROW BIOPSY (STL)(Performed 11/01/2023) Performed for Illness, unspecified * FLOW CYTOMETRY BONE MARROW(Performed 11/01/2023) Performed for Anemia, unspecified Results * MYELOID MALIGNANCIES MUTATION PNL (03/21/2024 2:39 PM CDT) Pathologist [facility] Interpretation Myeloid Malignancy PNL See Note 04/02/2024 9:30 AM CDT [facility]) Comment: Myeloid Malignancies Mutation Panel NGS Submitted diagnosis or diagnosis under consideration for variant interpretation: Anemia TIER 1: Variants of Known Clinical Significance in Hematologic Malignancies None found TIER 2: Variants of Unknown Clinical Significance in Hematologic Malignancies None found This result has been reviewed and approved by María Minor M.D. Low coverage regions: Listed below are regions where the average sequencing depth (number of times a particular nucleotide is sequenced) in at least 20% of the kiatfy-mz-gegmbgdh is less than our stringent cutoff of 300. Sensitivity for detection of low allelic frequency variants may be reduced in areas with reduced depth of coverage. None BACKGROUND INFORMATION: Myeloid Malignancies Mutation Panel by Next Generation Sequencing CHARACTERISTICS: Myeloid malignancies are clonal disorders of hematopoietic stem and progenitor cells that include myelodysplastic syndromes (MDSs), myeloproliferative neoplasms (MPNs), myelodysplastic/myeloproliferative neoplasms (MDS/MPNs), and acute myeloid leukemia (AML). Recent studies have identified recurrently mutated genes with diagnostic and/or prognostic impact in myeloid malignancies. The presence of certain mutations may inform clinical management. This multigene panel by massively parallel sequencing (next generation sequencing) is a more cost-effective approach when compared to the cost of multiple single gene tests. This test can be used to complement the morphologic and cytogenetic workup of myeloid malignancies. GENES TESTED: ANKRD26; ASXL1; ASXL2; BCOR; BCORL1; BRAF; CALR; CBL; CBLB; CEBPA; CSF3R; CUX1*; DDX41; DNMT1*; DNMT3A; ELANE; ETNK1; ETV6; EZH2; FBXW7; FLT3; GATA1; GATA2; GNAS; HNRNPK; IDH1; IDH2; IL7R; JAK1; JAK2; JAK3; KDM6A*; KIT; KMT2A; KRAS; LUC7L2; MPL; NOTCH1; NPM1*; NRAS; NSD1; PHF6; PIGA; PPM1D; SHVF31J; PRPF8; PTPN11; RAD21; RUNX1; SAMD9; SAMD9L; SETBP1; SF3B1; SH2B3; SMC1A; SMC3; SRSF2; STAG2; STAT3; STAT5B*; SUZ12*; TET2; TP53; U2AF1; U2AF2; UBA1; WT1; ZRSR2. *One or more exons of the preferred transcript were not covered by sequencing for the indicated gene; see limitations section below. METHODOLOGY: Genomic DNA was isolated from peripheral blood or bone marrow and then enriched for the targeted exonic regions of the tested genes. The variant status of the targeted genes was determined by massively parallel sequencing. The hg19 (GRCh37) human genome assembly was used as a reference for identifying genetic variants. Clinically significant variants and variants of uncertain significance called in the preferred transcript are reported. LIMITATIONS: Variants outside the targeted regions or below the limit of detection are not identified. Variants in regions that are not included in the preferred transcript for the targeted genes are not detected. In some cases, variants may not be identified due to technical limitations in the presence of pseudogenes or in repetitive or homologous regions. It is also possible some insertion/deletion variants may not be identified. Benign or likely benign variants in the preferred transcript are not reported. The following regions were not sequenced due to technical limitations of the assay: CUX1 ([id number]) exon 24 DNMT1 ([id number]) exon 5 KDM6A ([id number]) exon 13 NPM1 (NM_002520) exon 1 STAT5B (NM_012448) exons 6-9 SUZ12 (NM_015355) exons 1-9 LIMIT OF DETECTION (LOD): 5 percent variant allele fraction (VAF) for single nucleotide variants (SNV) and small variants less than 24 base pairs (bp). Variants greater than 24bp may be detected at LOD, but the analytical sensitivity may be reduced. ANALYTICAL SENSITIVITY: The positive percent agreement (PPA) estimate for the respective variant classes (with 95 percent credibility region) are listed below. Genes included on this test are a subset of a larger methods-based validation from which the PPA values are derived. Single nucleotide variants (SNVs): 96.9 percent (95.1-98.1 percent) Insertions/duplications (1-24bp): 98.1 percent (95.5-99.3 percent) Insertions/duplications (greater than 24bp): greater than 99 percent (92.9-100.0 percent) Deletions (1-24bp): 96.7 percent (92.8-98.7 percent) Deletions (greater than 24bp): 90 percent (79.5-96.1 percent) Multinucleotide variants (MNVs): 97 percent (93.0-99.0 percent) FLT3 ITDs: Greater than 99 percent (97.1-100.0 percent) CLINICAL DISCLAIMER: Results of this test must always be interpreted within the context of clinical findings and other relevant data and should not be used alone for a diagnosis of malignancy. This test is not intended to detect minimal residual disease. This test was developed and its performance characteristics determined by [employer]. It has not been cleared or approved by the U.S. Food and Drug Administration. This test was performed in a CLIA-certified laboratory and is intended for clinical purposes. Myeloid Malignancy Dx Anemia 9:30 AM [facility] [employer] ([facility]) Myeloid Malignancy Panel Specimen Whole Blood 04/02/2024 9:30 AM [facility]) EER Myeloid Malignancy See Note 04/02/2024 9:30 AM [facility] ([facility]) Comment: Authorized individuals can access the [employer] Enhanced Report using the following link: [email or web address] Performed By: [employer] [address] [place] [address] Senior Marketing Data Analyst: Thang Hinton MD, PhD CLIA Number: [id number] Other BLOOD SPECIMEN / Unknown Collection / Unknown 03/21/2024 2:39 PM CDT 03/21/2024 2:52 PM CDT Edgard Perez MD LAB - PATHOLOGY/CYTO LOGY ORDERABLES [employer] [facility]) [address] [place] [address], [facility] * ERYTHROPOIETIN (03/21/2024 2:39 PM CDT) Erythropoietin 7 4 - 27 mU/mL 03/22/2024 6:47 PM CDT [employer] ([facility]) Comment: INTERPRETIVE INFORMATION: Erythropoietin Normal serum concentrations of erythropoietin for 95% of individuals with normal hematocrits range from 4-27 mU/mL. As the hematocrit is lowered by iron deficiency, aplastic, or hemolytic anemia, the concentration of erythropoietin increases as shown in the graph below. In the absence of anemia, elevated concentrations are seen in renal tumors, as a manifestation of renal transplant rejection, and in secondary polycythemia. Low values may be observed in hemochromatosis. Expected Erythropoietin Concentrations in Patients with Uncomplicated Anemia Erythropoietin (mU/mL) 100,000 - + + 10,000 - +....... + ....... 1,000 - + ....... + ........ 100 - + ........ + ........ 10 - + ........ +---+---+---+---+---+---+ 10 20 30 40 50 60 70 (Hematocrit %) (Contributions To Nephrology 1988:66:54-62) Decreased erythropoietin concentrations with an elevated hematocrit are observed in patients with polycythemia rubra vera, and with a decreased hematocrit in patients with HIV infection who are receiving AZT. Patients on AZT who have anemia and erythropoietin concentrations of less than or equal to 500 mU/mL may benefit from therapy with recombinant EPO ([facility] 322:2313-7240,1989). Performed By: [employer] [address] [id number] Senior Marketing Data Analyst: Thang Hinton MD, PhD CLIA Number: [id number] Blood BLOOD SPECIMEN / Unknown Lab Venipuncture / Unknown 03/21/2024 2:39 PM CDT 03/21/2024 2:52 PM CDT Edgard Perez MD LAB - CHEMISTRY [facility] Organization Address City/State/ZIP Co de Phone Number [employer] [facility]) [address] [place] [address] * (ABNORMAL) SOLUBLE TRANSFERRIN RECEPTOR (03/21/2024 2:39 PM CDT) [facility] Soluble Transferrin Receptor 1.5(L) 2.2 - 5.0 mg/L 03/23/2024 4:09 AM CDT [employer] ([facility]) Comment: INTERPRETIVE INFORMATION: Soluble Transferrin Receptor People of descent and those residing at 5200 feet (1600 meters) above sea level were found to have a 6% higher normal value. These differences were additive. Reference intervals have not been established for females, patients under 18 years of age, and recent or frequent blood donors. Serum soluble transferrin receptor increases in iron deficiency and is usually unaffected by chronic disease states. In general, to increase sensitivity and specificity, the measurement of serum soluble transferrin receptor should be performed in combination with other tests of iron status, including ferritin, TIBC, and serum iron. (See Table Below). Tests for Iron Anemia of Combined Iron Changes Def. Chronic Def. and anemia Analyte in: Anemia Disease of Chronic Dz ------- -------- ------ --------- Ferritin Fe Stores Low High Normal or High TIBC Fe Status High Low Normal or High Serum Fe Fe Status Low Low Low sTfR Fe Status High Normal High Performed By: [employer] [address] [place] [address] Senior Marketing Data Analyst: Thang Hinton MD, PhD CLIA Number: [id number] Blood BLOOD SPECIMEN / Unknown Lab Venipuncture / Unknown 03/21/2024 2:39 PM CDT 03/21/2024 2:52 PM CDT Edgard Perez MD LAB - CHEMISTRY [facility] [employer] [facility]) [address] * KAPPA/LAMBDA LITE CHAIN FREE PANEL (03/21/2024 2:39 PM CDT) Pom[place]ret Quant Free Light Chain 15.87 3.30 - 19.40 mg/L 03/23/2024 12:33 AM CDT [facility]) Comment: INTERPRETIVE INFORMATION: Pom[place]ret Qnt Free Light Chains Undetected antigen excess is a rare event but cannot be excluded. Free light chain results should always be interpreted in conjunction with other clinical and laboratory findings. Lambda Free Light Chain Quantitative 13.45 5.71 - 26.30 mg/L 03/23/2024 12:33 AM CDT [facility]) Comment: INTERPRETIVE INFORMATION: Lambda Qnt Free Light Chains Undetected antigen excess is a rare event but cannot be excluded. Free light chain results should always be interpreted in conjunction with other clinical and laboratory findings. Pomfret/Lambda Free Light Chain ratio 1.18 0.26 - 1.65 03/23/2024 12:33 AM CDT [facility]) Comment: Performed By: [employer] [address] [place] [address] Senior Marketing Data Analyst: Thang Hinton MD, PhD CLIA Number: [id number] Blood BLOOD SPECIMEN / Unknown Lab Venipuncture / Unknown 03/21/2024 2:39 PM CDT 03/21/2024 2:52 PM CDT Edgard Perez MD LAB - CHEMISTRY [facility]) [address] * (ABNORMAL) CBC WITH DIFFERENTIAL (03/21/2024 2:39 PM CDT) WBC 8.8 4.0 - 10.7 x10E9/L 03/21/2024 3:01 PM CDT [facility] RBC Count 3.32(L) 4.30 - 5.80 x10E12/L 03/21/2024 3:01 PM [facility] Hemoglobin 10.3(L) 13.3 - 17.5 g/dL 03/21/2024 3:01 PM [facility] Hematocrit 29.7(L) 38.7 - 51.1 % 03/21/2024 3:01 PM [facility] MCV 89.5 80.0 - 98.0 fL 03/21/2024 3:01 PM [facility] MCH 31.0 26.7 - 33.6 pg 03/21/2024 3:01 PM [facility] MCHC 34.7 31.7 - 36.3 g/dL 03/21/2024 3:01 PM [facility] RDW-CV 13.1 11.3 - 14.8 % 03/21/2024 3:01 PM [facility] Platelet Count 375 150 - 420 x10E9/L 03/21/2024 3:01 PM [facility] MPV 8.9 7.8 - 11.4 fL 03/21/2024 3:01 PM [facility] Neutrophil % 63.6 41.0 - 74.0 % 03/21/2024 3:01 PM [facility] Lymphocyte % 24.8 17.0 - 47.0 % 03/21/2024 3:01 PM [facility] Monocyte % 8.1 3.0 - 11.0 % 03/21/2024 3:01 PM [facility] Eosinophil % 2.8 0.0 - 7.0 % 03/21/2024 3:01 PM [facility] Basophil % 0.5 0.0 - 1.6 % 03/21/2024 3:01 PM [facility] Immature Granulocytes % 0.2 0.0 - 1.0 % 03/21/2024 3:01 PM [facility] Neutrophil Absolute 5.59 1.60 - 7.50 x10E9/L 03/21/2024 3:01 PM [facility] Lymphocyte Absolute 2.18 1.00 - 4.40 x10E9/L 03/21/2024 3:01 PM [facility] Monocyte Absolute 0.71 0.15 - 1.00 x10E9/L 03/21/2024 3:01 PM [facility] Eosinophil Absolute 0.25 0.00 - 0.60 x10E9/L 03/21/2024 3:01 PM [facility] Basophil Absolute 0.04 0.00 - 0.13 x10E9/L 03/21/2024 3:01 PM [facility] Blood BLOOD SPECIMEN / Unknown Lab Venipuncture / Unknown 03/21/2024 2:39 PM CDT 03/21/2024 2:56 PM CDT Edgard Perez MD LAB - HEMATOLOGY ORD ERABLES [facility] [address] [place] [address], [facility] [phone] * COMPREHENSIVE METABOLIC PANEL (03/21/2024 2:39 PM CDT) BUN 10 7 - 26 mg/dL 03/21/2024 3:21 PM [facility] Creatinine 0.75 0.71 - 1.16 mg/dL 03/21/2024 3:21 PM [facility] Sodium 137 136 - 145 mmol/L 03/21/2024 3:21 PM [facility] Potassium 4.2 3.5 - 4.5 mmol/L 03/21/2024 3:21 PM [facility] Chloride 101 98 - 107 mmol/L 03/21/2024 3:21 PM [facility] CO2 29 22 - 29 mmol/L 03/21/2024 3:21 PM [facility] Glucose 74 70 - 115 mg/dL 03/21/2024 3:21 PM [facility] Calcium 9.5 8.4 - 10.2 mg/dL 03/21/2024 3:21 PM [facility] Protein Total 7.6 6.0 - 8.3 g/dL 03/21/2024 3:21 PM [facility] Albumin 4.7 3.4 - 5.0 g/dL 03/21/2024 3:21 PM [facility] Bilirubin Total 0.3 0.2 - 1.2 mg/dL 03/21/2024 3:21 PM [facility] Alkaline Phosphatase 64 40 - 150 U/L 03/21/2024 3:21 PM [facility] ALT 11 5 - 55 U/L 03/21/2024 3:21 PM [facility] AST 18 5 - 34 U/L 03/21/2024 3:21 PM [facility] Anion Gap 7 6 - 16 03/21/2024 3:21 PM [facility] BUN/Creatinine Ratio 13 7 - 23 03/21/2024 3:21 PM [facility] Osmolality Calculated 282 275 - 295 mOsm/kg 03/21/2024 3:21 PM [facility] Albumin/Globulin Ratio 1.6 1.1 - 2.3 03/21/2024 3:21 PM [facility] eGFR by CKD-EPI >90 >=90 mL/min/1.7 3 m2 03/21/2024 3:21 PM [facility] Blood BLOOD SPECIMEN / Unknown Lab Venipuncture / Unknown 03/21/2024 2:39 PM CDT 03/21/2024 2:56 PM CDT Edgard Perez MD LAB - CHEMISTRY [facility] Organization Address City/State/ZIP Co de Phone Number [facility] [address] [place] [phone], [facility] [phone] * PROTEIN ELECTROPHORESIS BLOOD (03/21/2024 2:39 PM CDT) Interpretation Serum PE Normal Pattern Normal Pattern 03/24/2024 10:29 PM T [facility] Comment: Serum capillary electrophoresis shows characteristic bands corresponding to albumin, alpha and beta globulins and polyclonal immunoglobulins. No monoclonal immunoglobulin detected. Non-secretory myeloma (NSM) and light chain only myeloma cannot be excluded based on this result. Recommend serum free light chain measurements for complete evaluation of plasma cell disorders. Luz Apple MD Attending Physician Department of Pathology Transfusion Medicine *The electrophoresis pattern and the interpretation have been reviewed and verified by the teaching physician. Protein Total 7.0 6.0 - 8.3 g/dL 03/24/2024 10:29 PM CDT [facility] Albumin 4.6 3.3 - 5.6 g/dL 03/24/2024 10:29 PM CDT [facility] Alpha-1 Globulins 0.4 0.2 - 0.4 g/dL 03/24/2024 10:29 PM CDT [facility] Alpha-2 Globulins 0.6 0.5 - 1.0 g/dL 03/24/2024 10:29 PM CDT [facility] Beta Globulins 0.8 0.6 - 1.1 g/dL 03/24/2024 10:29 PM CDT [facility] Gamma Globulins 0.6 0.6 - 1.6 g/dL 03/24/2024 10:29 PM CDT [facility] Blood BLOOD SPECIMEN / Unknown Lab Venipuncture / Unknown 03/21/2024 2:39 PM CDT 03/21/2024 2:52 PM CDT Edgard Perez MD LAB - CHEMISTRY [facility] Organization Address City/State/ZIP Co de Phone Number [address] [address], [facility] [phone] * IRON + TRANSFERRIN PANEL (03/21/2024 2:39 PM CDT) Iron 99 50 - 175 ug/dL 03/21/2024 3:22 PM CDT [facility] Transferrin 262 174 - 382 mg/dL 03/21/2024 3:22 PM CDT [facility] Transferrin Saturation % 30 16 - 50 % 03/21/2024 3:22 PM CDT [facility] TIBC Calculated 328 240 - 450 ug/dL 03/21/2024 3:22 PM CDT [facility] Blood BLOOD SPECIMEN / Unknown Lab Venipuncture / Unknown 03/21/2024 2:39 PM CDT 03/21/2024 2:52 PM CDT Edgard Perez MD LAB - CHEMISTRY [facility] [address] [place] [id number], [facility] [phone] * FLOW CYTOMETRY BONE MARROW (11/01/2023 9:16 AM CDT) Case Report Flow Cytometry Case: [id number] Authorizing Provider: Jaime Coleman Collected: 11/01/2023 09:16 AM MD Royce Ordering Location: [facility] - Received: 11/01/2023 01:16 PM Pathology Lab Pathologist: Cristina Christian MD Specimen: Bone Marrow 11/01/2023 3:29 PM CDT [facility] Final Diagnosis Bone marrow, flow cytometry: - No clonal B-cell or increased blast population detected 11/01/2023 3:29 PM CDT [facility] Flow Cytometry Interpretation Viability: 93% B-cells: polytypic, kappa:lambda ratio 1.5:1 T-cells: not increased Blasts: not increased, 3.7% of overall events, a small subset represents CD19+/CD10+ hematogones. A bone marrow aspirate smear prepared from the flow cytometry specimen has been reviewed for quality intern purposes. 11/01/2023 3:29 PM CDT [facility] Flow Cytometry Results Differential Result Comment Flow Cell Count /uL 120,000 Total Viability % 93.0 Lymphocytes % 30 Dim CD45 Region % 10 Monocytes % 9 Granulocytes % 52 11/01/2023 3:29 PM CDT [facility] Reason for test Anemia, unspecified 285.9 11/01/2023 3:29 PM T [facility] Client Specimen ID # [id number] 11/01/2023 3:29 PM [facility] Number of markers 10 were performed. A-2 Flow CD10 A-3 Flow CD13 A-5 Flow CD20 A-1 Flow CD5 A-4 Flow CD19 A-6 Flow CD33 A-7 Flow CD34 A-8 Flow CD45 A-9 Pomfret+CD19+ A-10 Lambda+CD19+ 11/01/2023 3:29 PM CDT [facility] Pathologist Location at [facility] 11/01/2023 3:29 PM CDT [facility] Disclaimer Test performed at [facility], [address] [place] [address], [id number]. *The established laboratory minimum viability is 70%. [...] high complexity clinical testing. 11/01/2023 3:29 PM CDT [facility] Embedded Images 3:29 PM CDT [facility] Pathology/Cytolo gy BONE MARROW SPECIMEN / Unknown 11/01/2023 9:16 AM CDT 11/01/2023 1:16 PM CDT Jaime Coleman MD LAB - PATHO LOGY/CYTOLOGY ORDERABLES [facility] [address] [place] [address]. [place] [address], [facility] [phone] * BONE MARROW BIOPSY (STL) (11/01/2023 9:16 AM CDT) Case Report Bone Marrow Patholog y Report Case: [id number] Authorizing Provider: Jaime Coleman Collected: 11/01/2023 09:16 AM MD Royce Ordering Location: [facility] - Received: 11/02/2023 03:53 PM Pathology Lab Pathologist: Cristina Christian MD Specimens: A) - Bone Marrow Clot B) - Bone Marrow Core 11/03/2023 3:17 PM CDT [facility] Final Diagnosis Bone marrow, aspirate, clot section, and core biopsy: - Normocellular marrow with maturing trilineage hematopoiesis - No evidence of lymphoma or high-grade myeloid neoplasm - See description Peripheral blood smear: - Normocytic anemia - See description 11/03/2023 3:17 PM [facility] Comment Correlation with cytogenetics is recommended. 11/03/2023 3:17 PM [facility] Peripheral Smear Description Manual Differential Count (100 cells): 58% neutrophils, 29% lymphocytes, 7% monocytes, 6% eosinophils, and 0% basophils. Leukocyte number: normal. Granulocyte morphology: normal. Lymphocyte morphology: normal. Erythrocyte number: decreased. Erythrocyte morphology: normocytic and normochromic. Anisopoikilocytosis: mild. Polychromasia: mild. Platelet number: normal. Platelet morphology: normal. 11/03/2023 3:17 PM [facility] Bone Marrow Aspirate Differential [...] stain): no ring sideroblasts. 11/03/2023 3:17 PM [facility] Bone Marrow Core Biopsy [...] stains are performed on core biopsy, in [facility], Department of pathology and demonstrate the following: [...] of overall marrow cellularity) 11/03/2023 3:17 PM [facility] Flow Cytometry Summary Bone marrow, flow cytometry ([id number]): - No clonal B-cell or increased blast population detected. 11/03/2023 3:17 PM [facility] Clinical History The patient is a 53-year-old woman with history of seizure disorder (on Keppra and Dilantin), vitamin B12 deficiency who presented for evaluation of chronic normocytic anemia. He underwent bone marrow biopsy procedure for evaluation of anemia. 11/03/2023 3:17 PM [facility] Materials Received Received are 22 slide(s) and 3 blocks labeled [id number] along with a copy of the outside pathology report. [place] [address] . All original materials are returned to the referring institution, along with a copy of our final report. 11/03/2023 3:17 PM [facility] Microscopic Description Overall, the [...] testing is suggested. 11/03/2023 3:17 PM CDT [facility] Pathologist Location at [facility] 11/03/2023 3:17 PM CDT [facility] Disclaimer The performance characteristics of all immunohistochemical and indirect immunofluorescence stains (if any) cited in this report were determined by the Histopathology Laboratory of [facility]. Some of these tests were [...] attending (teaching) pathologist. 11/03/2023 3:17 PM CDT [facility] Embedded Images 11/03/2023 3:17 PM CDT [facility] Pathology/Cytology BONE MARROW SPECIMEN / Unknown 11/01/2023 9:16 AM CDT 11/02/2023 3:53 PM CDT Miscellaneous samples (specimen) BONE MARROW SPECIMEN / Unknown 11/01/2023 9:16 AM CDT 11/02/2023 3:59 PM CDT Jaime Coleman MD LAB - PATHO LOGY/CYTOLOGY ORDERABLES Performing Organization Address City/State/[facility] Co de Phone Number [facility] [address] [phone] Care Teams Tank Storage Supervisor Relationship Specialty Start Date End Date Angela Demarco MD [address] [place], [place] [phone] PCP - General Internal Medicine 03/21/24
--- OUTSIDE RECORDS SUMMARY | 2024-09-02 10:29 | XMS_ITS | Encounter Summary ---
Author Organization [facility] Address [address] [place] [address] Care Team Providers Care Ambulance Driver Name Role Phone Angela Demarco MD Primary Care Provider [phone] Encounter Details Date Type Department Care Team ([facility] Contact Info) Description 07/02/2003 Outpatient Historical [facility] [id number] [facility] [address] [place] [phone] Esteban Cardoso MD [address] [facility] [address] [facility] [address] Social History Tobacco Use Types Packs/Day Years Used Date Smoking Tobacco: Never Assessed Sex and Gender Information Value Date Recorded Sex Assigned at Not on file Legal Sex Male 3:01 AM 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 RELATIONS REPRESENTATIVE Gender Identity Not on file Sexual Orientation Not on file documented as of this encounter Plan of Treatment Upcoming Encounters Date Type Department Care Team (Late Contact Info) Description 09/05/2024 11:45 AM PATIENT RELATIONS REPRESENTATIVE Office Visit [facility] Oncology and Hematology - [place] [address] [facility] [address] [place] [address] Yong Vaughn MD [address] [facility] [address] [place] [address] documented as of this encounter Visit Diagnoses Not on filedocumented in this encounter Care Teams Ambulance Driver Relationship Specialty Start Date End Date Angela Demarco MD [address] [place] [phone] PCP - General Internal Medicine 07/29/21 documented as of this encounter
--- OUTSIDE RECORDS SUMMARY | 2024-09-02 10:29 | XMS_ITS | Encounter Summary ---
Author Organization [facility] Address [address] [place] [address] Care Team Providers Care Refueling Ramp Supervisor Name Role Phone Angela Demarco MD Primary Care Provider [phone] Encounter Details Date Type Department Care Team (Late Contact Info) Description 07/01/2003 Outpatient Historical [facility] [address] [facility] [address] [place] [phone] Mitchell Viveros MD [address] 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 Gender Identity Not on file Sexual Orientation Not on file documented as of this encounter Plan of Treatment Upcoming Encounters Date Type Department Care Team (Late Contact Info) Description 09/05/2024 11:45 AM DELINQUENT TAX COLLECTOR ASSISTANT Office Visit [facility] Oncology and Hematology - [place] [address] [facility] 200 [place] [address] Yong Vaughn MD [address] [facility] [address] [place] [address] documented as of this encounter Visit Diagnoses Not on filedocumented in this encounter Care Teams Refueling Ramp Supervisor Relationship Specialty Start Date End Date Angela Demarco MD [address] [place] [phone] PCP - General Internal Medicine 07/29/21 documented as of this encounter
--- OUTSIDE RECORDS SUMMARY | 2024-09-02 10:30 | XMS_ITS | Clinical Summary ---
Author Organization [facility] Nitza Correa Address [address] [place] [address] Care Team Providers Care Electrical Controls Assembler Name Role Phone Angela Demarco MD Primary Care Provider [phone] Allergies No known active allergies Medications phenytoin (DILANTIN) 100 mg/4 mL Suspension Take by mouth. Active pantoprazole (PROTONIX) 20 mg Tablet, Delayed Release (E.C.) Take 20 mg by mouth daily. Active ALLOPURINOL ORAL Take by mouth. Active levETIRAcetam (KEPPRA) 100 mg/mL Solution Take by mouth 2 times daily. Active FENOFIBRATE ORAL Take by mouth. Active Active Problems Problem Noted Date Diagnosed Date Other dietary vitamin B12 deficiency anemia 02/2021 Chronic anemia 03/22/2021 Encounters Date Type Department Care Team Description 08/13/2024 External Device Data STL ABSTRACTION Provider, Abstract from Last 3 Months Family History Medical History Relation Name Comments Cancer Brother 3 Relation Name Status Comments Brother 1 Alive Brother 2 Alive Brother 3 Brother 4 Alive Daughter 1 Alive Daughter 2 Alive Daughter 3 Alive Daughter 4 Alive Father Mother Alive Social History Tobacco Use Types Packs/Day Years Used Date Smoking Tobacco: Never Smokeless Tobacco: Current Chew Tobacco Cessation:Ready to Q uit: Not Asked; Counseling Given: Not Answered Alcohol Use Standard Drinks/Week Comments Not Currently 0 (1 standard drink = 0.6 oz pur e alcohol) Sex and Gender Information Value Date Recorded Sex Assigned at Not on file Legal Sex Male 3: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 Gender Identity Not on file Sexual Orientation Not on file Last Filed Vital Signs Vital Sign Reading Time Taken Comments Blood Pressure 131/69 01/24/2024 2:44 PM CDT Pulse 69 01/24/2024 2:44 PM CDT Temperature 36.7 C (98 F) 01/24/2024 2:44 PM CDT Respiratory Rate 18 01/24/2024 2:44 PM CDT Oxygen Saturation 94% 01/24/2024 2:44 PM CDT Inhaled Oxygen Concentration - - Weight 68.5 kg (151 lb) 01/24/2024 2:44 PM CDT Height 177.8 cm (5' 10 ) 04/11/2022 2:27 PM CDT Body Mass Index 21.67 04/11/2022 2:27 PM CDT Plan of Treatment Upcoming Encounters Date Type Department Care Team (Late st Contact Info) Description 09/05/2024 11:45 AM BELT AND LINK ASSEMBLY SUPERVISOR Office Visit [facility] Oncology and Hematology - [place] [address] [facility] [address] [place] [address] Yong Vaughn MD [address] [facility] [address] [place] [address] Health Maintenance Due Date Last Done Comments HEPATITIS B VACCINES (1 of 3 - 19+ 3-dose series) 1987 COLORECTAL SCREENING 2013 Colorectal Cancer Screening 2013 FIT-DNA Q 3 years 2013 FIT/FOBT Q 1 year 2013 Flex Sig/CT Colonography Q 5 years 2013 ZOSTER VACCINE (2 of 2) 08/31/2021 07/06/2021 DTAP/TDAP/TD VACCINES (2 - T d or Tdap) 07/10/2022 07/10/2012 INFLUENZA VACCINE (#1) 2024 2, 04/20/2021, 04/09/2020, Additional history exists Care Teams Electrical Controls Assembler Relationship Specialty [place] [address] [place] [phone] PCP - General Internal Medicine 07/29/21
--- OUTSIDE RECORDS SUMMARY | 2024-09-02 10:30 | XMS_ITS | Data Portability ---
Author Organization [place] [facility] [employer], Main Office Address [address] [place] [address] Care Team Providers Care Locomotive Engineer Diesel Name Role Phone NUNU EASTMAN Primary Care Provider NUNU EASTMAN Referring Provider [phone] Assessment Encounter Date Assessment Date Assessment LastModified by Organization Details LastModified Time 09/27/2022 09/27/2022 My impression patient has medial epicondylitis right elbow. It is resolving with conservative treatment at this point. Despite the fact he has gone back to work and overused it, he seemingly doing well this point. He can be dismissed follow up on an as-needed basis if he gets worse or change can either reinjected at some point or consider more prednisone pills. [email or web address] Not available 09/27/2022 10:49:58 Plan of Treatment Reminders Order Date Submit Date Provider Last Modified By Organization Details Last Modified Time Details Appointments None record ed. Lab None record ed. Referral None record ed. Procedures None record ed. Surgeries None record ed. Imaging None record ed. Medication Orders None record ed. Patient TargetsNo targets recorded. Patient InstructionsNo instructions recorded. Reason for Referral None Reported. Results Created Date Observation Date Name Description Value Unit Range Abnormal Flag Note LastModifiedBy Organization Detail LastModifiedTime 10/02/19 22 XR, wrist No observ ation record ed. [id number] Not Available 09/07/2022 13:15:53 10/02/19 22 XR, wrist No observ ation record ed. [id number] Not Available 09/07/2022 13:15:53 09/01/19 23 XR, elbow No observ ation record ed. [id number] [place] [address], [place], [address], 09/07/2022 13:15:53 Result Notes None recorded. Problems Name Problem SNOMED Code Status Onset Date Resolution Date Notes Provider Name and Address Organization Details Recorded Time Medial epicondyli tis of right elbow joint 7350799382992 09 Active 2022 Not Available [facility] 3 13:13:47 Pain of right wrist 9178580285148 00 Active 2021 Not Available [facility] 3 13:13:47 Disorder of bursa of shoulder region 11540702 Active Not Available [facility] 3 13:13:47 Problem Notes None recorded. Procedures Surgical History Date Name Laterality Status Provider Name and Address Organization Details Recorded Time procedure on elbow completed Not Available [facility] 09/07/2022 13:12:58 Imaging Results Imaging Date Name Status LastModified by Organiz ation Details LastModified Time 09/01/2022 XR, elbow completed [id number] [id number] [place] [address], [place], [address], 09/07/2022 13:15:53 10/01/2021 XR, wrist completed [id number] Information not available 09/07/2022 13:15:53 10/01/2021 XR, wrist completed [id number] Information not available 09/07/2022 13:15:53 Procedure Notes None recorded. Medical Equipment None Reported. Medications Name Sig Start Date Stop Date Status Note LastModified by Organization Details LastModified Time cyclobenzap rine 10 mg tablet active Not Available Not Available Not Available atorvastati n 40 mg tablet TAKE ONE TABLET BY MOUTH EVERY EVENING TO LOWER CHOLESTER OL active Not Available Not Available No t Available prednisone 10 mg tablet TAKE ONE TABLET BY MOUTH THREE TIMES DAILY FOR 3 DAYS, THEN ONE TABLET TWICE DAILY FOR 2 DAYS, THEN ONE TABLET ONCE DAILY FOR ONE DAY 2022 active Not Available Not Available Not Avai lable hydrocodone 5 mg-acetamin ophen 325 mg tablet 10/05 completed Not Available Not Available Not Available bupivacaine HCl 0.5 % (5 mg/mL) injection solution Take 10 mg by injection route. active Not Available Not Available No t Available phenytoin sodium extended 100 mg capsule TAKE THREE CAPSULES BY MOUTH TWICE DAILY active Not Available Not Available No t Available prednisone 10 mg tablets in a dose pack Take 1 tab by mouth, 3 times a day for 3 daysTake 1 tab by mouth 2 times a day for 2 daysTake 1 tab by mouth once a day for 1 day active Not Available Not Available No t Available potassium chloride ER 20 mEq tablet,exte nded release(par t/cryst) active Not Available Not Available Not Available Kenalog 10 mg/mL suspension for injection In office injection administe red by the provider active [facility]: [phone] Not Available Not Available Not Available hydrocodone 7.5 mg-acetamin ophen 325 mg tablet 10/05 completed Not Available Not Available Not Available cephalexin 500 mg capsule active Not Available Not Available Not Available pantoprazol e 40 mg tablet,alayna yed release TAKE ONE TABLET BY MOUTH EVERY DAY BEFORE MEALS FOR STOMACH active Not Available Not Available No t Available allopurinol 300 mg tablet TAKE ONE TABLET BY MOUTH EVERY DAY FOR GOUT active Not Available Not Available No t Available bisacodyl 5 mg tablet,alayna yed release active Not Available Not Available Not Available levetiracet am 750 mg tablet TAKE ONE TABLET BY MOUTH TWICE DAILY active Not Available Not Available No t Available polyethylen e glycol 3350 17 gram/dose oral powder active Not Available Not Available Not Available albuterol sulfate HFA 90 mcg/actuati on aerosol inhaler Inhale 2 puffs by mouth every 4 hours as needed for shortness of breath or wheezing active Not Available Not Available No t Available naproxen 500 mg tablet active Not Available Not Available Not Available fenofibrate nanocrystal lized 145 mg tablet TAKE ONE TABLET BY MOUTH EVERY EVENING FOR TRIGLYCER IDES active Not Available Not Available No t Available GaviLyte-N 420 gram oral solution active Not Available Not Available Not Available Colcrys 0.6 mg tablet active Not Available Not Available No t Available ropivacaine (PF) 5 mg/mL (0.5 %) injection solution Take 10 mg by injection route. active [facility] [phone] Not Available Not Available Not Available ID NOW COVID-19 Test Kit TEST DIRECTED TODAY active Not Available Not Available No t Available Vitals Date Recorded Body mass index (BMI) Body height Body weight Provider Name and Address Organization Details Last Updated DateTime 10/05/2021 33.8 kg/m2 152.4 cm 38543.48 g Not Available [facility] 09/07/2022 13:13:21 Date Recorded Body mass index (BMI) Body height Body weight Provider Name and Address Organization Details Last Updated DateTime 11/02/2021 24.4 kg/m2 177.8 cm 25574.7 g Not Available [facility] 09/07/2022 13:13:21 Date Recorded Body mass index (BMI) Body height Body weight Provider Name and Address Organization Details Last Updated DateTime 09/01/2022 24.4 kg/m2 177.8 cm 37376.7 g Not Available [facility] 09/07/2022 13:13:21 Date Recorded Body height Body mass index (BMI) Body weight Provider Name and Address Organization Details Last Updated DateTime 09/27/2022 177.8 cm 23.7 kg/m2 14974.74 g JESUS Bustos [place] [facility] [employer] [facility] 09/27/2022 09:07:06 Social History Question Answer Notes LastModified by Organizat ion Details LastModified Time Tobacco Smoking Status Former Smoker Not Available [facility] 09/07/2022 13:12:54 What Is Your Level Of Alcohol Consumption? None [id number] Information not available 09/07/2022 How Many Years Have You Smoked Tobacco? 25 [id number] Information not available 09/07/2022 Sex: Unknown Functional Status None recorded. Mental Status None recorded. Family History Relationship Description Onset Age of this Age Resolved Age Notes LastModified by Organization Details LastModified Time Father Hypertensive disorder [id number] Not available 09/07/2022 13:12:59 Mother Diabetes mellitus [id number] Not available 09/07/2022 13:12:59 Medical History Condition Response ARTHRITIS Y GOUT Y ANEMIA/BLOOD DISORDER Y Past Encounters Encounter ID Performer Location Encounter Start Date Encounter Closed Date Diagnosis/Indication Diagnosis SNOMED-CT Code Diagnosis ICD10 Code Diagnosis Note [id number] [facility] [place] [address] [place] [address] 10/05/2021 00:00:00 10/05/2021 16:16:05 [id number] [facility] [place] [address] [place] [address] 11/02/2021 00:00:00 11/02/2021 14:41:04 [id number] [facility] [place] [address] [place] [address] 09/01/2022 00:00:00 09/01/2022 09:22:47 [id number] Esteban Osborne MD [facility] [address] [place] [address] 09/27/2022 09:04:53 09/27/2022 11:02:45 Medial epicondylitis of right elbow joint [id number] 55091 M77.01 Health Concerns Section Related Observation LastModified by Organization Detai ls LastModified Time None Recorded Concern Status LastModified by Organization Details LastModified Time None Recorded Advance Directives Directive None Recorded Payers Encounter Date Sequence Insurance Name Policy Number Policy Yarbrough Covered Member ID Yarbrough Member ID Guarantor Name 09/27/2022 1 [facility] (MEDICAID HMO) [id number] [employer] [id number] [employer] Notes Date Note Type Note Provider Name and Address Organization Details Recorded Time 09/01/2022 text/html Elbow/ForearmRep ort ed bypatient.Hand Dominance:right Location:right; medial Quality:aching; throbbing; frequent; worsening Severity:moderate Timing:recurrent; chronic Context:lifting Aggravating Factors:pushing/pul ling; gripping; throwing; exercise Alleviating Factors:ice; rest; elevation; exercise Associated Symptoms:no numbness; no tingling; no redness; no ecchymosis; no catching/locking; no popping/clicking; no buckling; no grinding; no instability; no drainage; no fever; no chills; no weight loss; no change in bowel/bladder habits; no hand pain; no inflammatory bowel disease; no hypethesias; no paresthesias; no gout; no psoriasis; no arthritis;weakness; swelling;warmth;rad iating to volar forearm Not Available [place] [facility] 09/01/2022 09:22:47 09/27/2022 text/html patient returns medial epicondylitis right. I injected him last time and despite the fact he has overused it at work the pain is resolving. He got good relief from the shot the pills. Esteban Osborne MD [address] [place] [address], [place], [address], [place] [facility] 09/27/2022 10:50:12
[2024-09-02 10:59] LABS: Anion Gap 10 mmol/L (4-12); Blood Urea Nitrogen 11 mg/dL (9-20); Calcium 9.4 mg/dL (8.4-10.2); Carbon Dioxide 25 mmol/L (22-30); Chloride 102 mmol/L (98-107); Estimated Glomerular Filt Rate > 60; Glucose 97 mg/dL (65-110); Sodium 137 mmol/L (137-145)
[2024-09-02 12:02] LABS: Iron 95 ug/dL (49-181)
[2024-09-02 12:16] LABS: Percent Iron Saturation 31 % (20-50)
[2024-09-02 12:17] LABS: Folic Acid 5.1 ng/mL (2.76->20); Vitamin B12 > 1000.0 pg/mL (239-931)
== END 2024-09-02 09:36 | disposition home or self-care (01) ==
LOC: ANHLAB 09:39
PROVIDERS: PCP Internal Medicine Infectious Disease; Visit Provider Internal Medicine Hematology & Oncology
DX: D64.9 Anemia, unspecified (principal)
CPT/HCPCS: 36415; 80048; 82607; 82746; 83540; 83550; 85025

== ENCOUNTER 2025-04-28 14:24 | Outpatient (CLI) | payer OTHER, SELFPAY ==
[2025-04-28 14:45] LABS: Hematocrit 29.4 % (42.0-52.0); Hemoglobin 9.6 g/dL (14.0-18.0); Mean Corpuscular HGB Conc 32.7 g/dl (32-36); Mean Corpuscular Hemoglobin 29.4 pg (26-34); Mean Corpuscular Volume 90.2 fl (80-100); Platelet Count Result 346 k/mm3 (150-375); Red Blood Count 3.26 M/mm3 (4.6-6.20); White Blood Count 9.9 K/mm3 (4.5-10.0)
[2025-04-28 16:25] LABS: Iron 52 ug/dL (49-181)
[2025-04-28 16:28] LABS: Anion Gap 7 mmol/L (4-12); Blood Urea Nitrogen 12 mg/dL (9-20); Calcium 9.2 mg/dL (8.4-10.2); Carbon Dioxide 31 mmol/L (22-30); Chloride 99 mmol/L (98-107); Estimated Glomerular Filt Rate > 60; Potassium 3.6 mmol/L (3.4-5.0); Sodium 137 mmol/L (137-145)
[2025-04-28 16:35] LABS: Glucose 48 mg/dL (65-110); Percent Iron Saturation 16 % (20-50)
[2025-04-28 17:02] LABS: Ferritin 170.00 ng/mL (11.1-264)
[2025-04-28 17:58] LABS: Vitamin B12 813.0 pg/mL (239-931)
== END 2025-04-28 14:25 | disposition home or self-care (01) ==
PROVIDERS: PCP Internal Medicine Infectious Disease; Visit Provider Internal Medicine Hematology & Oncology
DX: D64.9 Anemia, unspecified (principal)
CPT/HCPCS: 36415; 80048; 82607; 82728; 82746; 83540; 83550; 85027